=== PATIENT | male | born 1950 | race Caucasian/White ===

== ENCOUNTER → 2016-12-29 | Outpatient (CLI) | payer OTHER ==
[~2016-12-29] MED LIST: BYSTOLIC 5 MG5 M1 PO; DIOVAN 80 MG TA80 M1 PO; INDAPAMIDE1.25 MG PO; KLOR-CON 1010 MEQ PO; LEVOTHYROXINE0.05 MG PO; NORCO 5-325 TA1 EACH PO; POTASSIUM20 PO; TIZANIDINE HCL4 MG PO
[2016-12-29 09:54] LABS: CALCIUM 8.8 mg/dL (8.5-10.1); CREATININE 1.6 mg/dL (0.7-1.3); POTASSIUM 3.7 mmol/L (3.5-5.1)
== END ==
LOC: CAT 08:54
PROVIDERS: Internal Medicine
DX: I71.01 Dissection of thoracic aorta (principal)

== ENCOUNTER 2018-09-11 10:06 | Inpatient (IN) | payer OTHER ==
[~2018-09-11] VITALS: Ht 177.8 cm; Wt 137.9 kg
[~2018-09-11 10:06] MED LIST changes: -LEVOTHYROXINE0.05 MG PO; +SYNTHROID175 MCG PO
[2018-09-11 10:07] VITALS: BP 179/91; BP 183/100
[2018-09-11 10:38] LABS: ABSOLUTE NEUTROPHILS 5.5 thou/uL (1.4-8.2); BASOPHILS 1.1 % (0.0-2.0); HEMOGLOBIN 15.1 gm/dL (14.0-18.0); LYMPHOCYTES 18.3 % (24.0-44.0); MCH 28.5 pg (26.0-34.0); MCHC 33.6 g/dL (28.0-37.0); MCV 84.9 fL (80.0-100.0); PLATELET COUNT 254 thou/uL (150-400); POLYS 69.6 % (36.0-66.0); RDW 15.6 % (10.5-14.5); WBC 7.9 thou/uL (4.0-11.0)
[2018-09-11 10:51] LABS: CALCIUM 9.1 mg/dL (8.5-10.1); CREATININE 1.2 mg/dL (0.7-1.3); POTASSIUM 3.5 mmol/L (3.5-5.1)
[2018-09-11 10:58] LABS: ALBUMIN 3.4 g/dL (3.4-5.0); TOTAL BILIRUBIN 0.9 mg/dL (<0.1-1.0); TOTAL PROTEIN 7.5 g/dL (6.4-8.2)
[2018-09-11] MEDS ORDERED: NIFEDIPINE ER90 M1 PO (11:00)
[2018-09-11] MEDS ORDERED: COREG25 MG PO (11:00)
[2018-09-11] MEDS ORDERED: ZOCOR20 MG PO (11:00)
[2018-09-11] MEDS ORDERED: ELIQUIS5 MG PO (11:00)
[2018-09-11] MEDS ORDERED: COZAAR 25 MG TA25 M1 PO (11:00)
[2018-09-11] MEDS ORDERED: OMEPRAZOLE 20 M20 M1 PO (11:01)
[2018-09-11 12:04] VITALS: BP 167/104
[2018-09-11 13:56] VITALS: BP 170/101
[2018-09-11 14:03] VITALS: BP 156/113; BP 171/109
[2018-09-11 14:44] VITALS: BP 149/83
--- NOTE | 2018-09-11 15:27 | NUR ---
WOUND CONSULT: PT. WAS SEEN TODAY BY DR. CLARK AND MYSELF. PT. HAS BILATERAL LYMPEDEMA WITH CELLULITIS TO RIGHT LEG. NO OPEN ULCERATIONS NOTED AT THIS TIME. RECOMMENDATIONS: LYPEDEMA THERAPY PT. AND STAFF NURSE WERE INSTRUCTED ON PLAN OF CARE.
--- NOTE | 2018-09-11 17:13 | NUR ---
ASSESMENT COMPLETED. VSS. A/O. DENIES PAIN AT THIS TIME. NO NOTED SOA. NO NV. DAISY LE EDEMA. LYMPHEDEMA WRAP TO LEFT LEG. NOTED CELLULITIS RIGHT LOWER LEG- REDNESS MARKED IN ER. NO NOTED DRAINING AT THIS TIME. IV ABX GIVEN. CREAM TO RIGHT LOWER LEG APPLIED. WILL CONT. TO MONITOR.
[2018-09-11 19:07] VITALS: BP 122/58
--- NOTE | 2018-09-12 02:35 | NUR ---
ASSUMED CARE 1900. VSS. ASSESSMENT CHARTED. PT DENIES ANY PAIN, SOA, OR CONERNS. R LE NO DRAINAGE, L LE LYMPHODEMA WRAPS IN PLACE CDI. ABX PER EMAR. PT VOIDING WELL PER URINAL. WILL CONTINUE TO MONITOR AND WITH POC.
[2018-09-12 04:25] VITALS: BP 141/73
[2018-09-12 07:50] VITALS: BP 136/83
[2018-09-12 07:54] VITALS: BP 136/83
--- NOTE | 2018-09-12 09:10 | H ---
[facility] [place] [address] HISTORY AND PHYSICAL Name: ALEXEI DUNN JR Room #: 426-P ADM IN M.R.#: [id number] Admission: 09/11/18 Attend Phys: Silvio Ngo Discharge: Date of : 52 Report #: [id number] THIS REPORT FOR: //name// CC: Roberto Pickard DATE OF SERVICE: 09/11/2018 CHIEF COMPLAINT: Swelling and redness of the right lower leg. HISTORY OF PRESENT ILLNESS: The patient is a 67-year-old gentleman who presented to the Emergency Room with increased redness and swelling of the right leg. He has a known history of lymphedema and has been managed through an outpatient clinic for a number of years; however, he said there is an increasing area of redness on the right anterior lower leg that has increased in size beyond baseline. His lymphedema therapist assessed it this morning and recommended medical attention. He spoke to Dr. Pickard through the office, who recommended ER presentation. He has had no fever or chills. PAST MEDICAL HISTORY: Lymphedema of both lower legs, hypertension and dyslipidemia. PAST SURGICAL HISTORY: Left hip replacement, cholecystectomy. FAMILY HISTORY: Noncontributory. SOCIAL HISTORY: No chronic alcohol or tobacco use. ALLERGIES: None. MEDICATIONS: Prilosec, Coreg, Eliquis, Zocor, losartan, nifedipine, potassium, indapamide, Levoxyl. REVIEW OF SYSTEMS: Denies headache, chest pain, shortness of breath, abdominal pain, nausea, vomiting, diarrhea, constipation, dysuria, syncope. OBJECTIVE: VITAL SIGNS: Temperature 36.4, pulse 81, respirations 16, blood pressure 167/104, O2 sat 99% on room air. GENERAL: He is awake and alert, in no distress. LUNGS: Clear with no wheezing. HEART: Regular, no murmur. ABDOMEN: Soft, normoactive bowel sounds. EXTREMITIES: There is lower leg deformity with significant edema. The right lower leg has an area of erythema from the ankle to mid anterior tibia with some lichenified skin and some scaly plaque with serous drainage. NEUROLOGIC: Cranial nerves intact. Speech is fluent. Motor strength intact. [address] [address] HISTORY AND PHYSICAL Name: ALEXEI DUNN Tuyet Room #: 426-P [facility] IN [facility].#: [id number] Admission: 09/11/18 Attend Phys: Silvio Ngo Discharge: Date of : 52 Report #: [id number] LABORATORY DATA: Reviewed. ASSESSMENT: 1. Cellulitis, right lower extremity. 2. Lymphedema both lower legs. 3. Hypertension. PLAN: IV antibiotics have been ordered. I will resume his home medications and ask the Wound Care team to follow to assist in lymphedema management while he is in house. He is hooked into the [employer] system for outpatient lymphedema management. <ELECTRONICALLY SIGNED> By: Georges Contreras MD 09/12/18 0910 [id number] Georges Contreras MD /nt
[2018-09-12 11:43] VITALS: BP 123/77
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
--- NOTE | 2018-09-12 15:03 | NUR ---
WOUND FOLLOW UP: PT. WAS SEEN TODAY BY DR. CLARK AND MYSELF. PT. LEGS ARE CLNICALLY BETTER TODAY. OT IS PRESENT TO COMPLETE LYMPEDEMA THERAPY. RECOMMENDATIONS: CONTINUE WITH CURRENT PLAN OF CARE. PT. AND STAFF NURSE WERE INSTRUCTED ON PLAN OF CARE.
--- NOTE | 2018-09-12 15:11 | NUR ---
PATIENT WAS ADMITTED FOR LYMPHEDEMA. THERE IS REDDNESS ON THE RIGHT LEG. EDEMA NOTED ON BOTH LEG. WHEN LEFT LEG WAS UNWRAPPED NOTED SMALL LESION UNDER BUTTOCK, AND HIS CALF. TRIAMCINOLON OTEMINT WAS PUT ON THE RIGHT LEG.PATIENT IS ABLE TO AMBULATE WITH CANE. HAD ABOWEL MOVEMENT, IS AWAKE AND ORIENTED TIMES 4
--- NOTE | 2018-09-12 15:22 | NUR ---
I have reviewed and concur with student documentation.
--- NOTE | 2018-09-12 16:54 | NUR ---
PT ASSESSED AT START OF SHIFT. HERE FOR INCREASED REDDNESS ON RLL. HAS CHRONIC LYMPHEDEMA WHICH IS TREATED BY THERAPIST AT [facility]. REDDNESS IMPROVED SINCE IV ANTIBIOTICS. SEEN BY DR. COREAS AND BART RN. ORDERS FOR WOUND CARE ON LT LEG LESIONS. LYMPHEDEMA THERAPIST IN TO SEE AND EVAL PT WHILE WOUND DR. HERE. LEGS REWRAPPED AND WOUNDS DRESSED PER ORDERS BY THERAPIST. SHE WILL SEE PT AGAIN ON TUESDAY. NO C/O PAIN. EATING AND DRIKING WELL. HAD BM.
[2018-09-12 19:50] VITALS: BP 151/90
[2018-09-13 03:45] VITALS: BP 167/82
--- NOTE | 2018-09-13 04:38 | NUR ---
ALERT AND ORIENTED. USING URINAL BY BEDSIDE.LYMPHEDEMA WRAPS TO BLE. DENIES PAIN. AFEBRILE. MAKES NEEDS KNOWN.
[2018-09-13 07:50] VITALS: BP 152/93
--- NOTE | 2018-09-13 11:42 | NUR ---
ASSESMENT COMPLETED. VSS. A/O. DENIES PAIN. NO NOTED SOA. NO NV. WRAPS INTACT TO LLE. CREAM APPLIED TO RL LEG. PT RESTING IN BED AT THIS TIME. VOIDS PER URINAL. WILL CONT. TO MONITOR.
--- NOTE | 2018-09-13 13:15 | NUR ---
Following for d/c planning needs. Referral sent to [facility] at physician's request.
--- NOTE | 2018-09-13 14:35 | NUR ---
WOUND FOLLOW UP: PT. WAS SEEN TODAY BY DR. CLARK AND MYSELF. PT. CELLULITIS TO HIS RIGHT LEG IS RESOLVING. PT. LEFT LEG IS C/D/I WITH LYMPEDEMA WRAPS AT THIS TIME. RECOMMENDATIONS: CONTINUE WITH CURRENT PLAN OF CARE. PT. AND STAFF NURSE WERE INSTRUCTED ON PLAN OF CARE.
[2018-09-13 15:14] VITALS: BP 160/95
[2018-09-13 19:43] VITALS: BP 150/76
--- NOTE | 2018-09-14 05:38 | NUR ---
ASSUMED CARE AT 1900, ASSESSMENT COMPLETED. PT DENIES PAIN, NAUSEA, OR SOB. RLE IS WARM AND PINK FROM MID WSIFT TO ANKLE R/T CELLULITIS, NO WEEPING OR OPEN AREAS, PEELING SKIN IS PRESENT. LLE LYMPHADEMA WRAP IS IN PLACE. RIGHT AC IV INFILTRATED/CLOTTED OFF, REMOVED AND STARTED A NEW IV IN THE RIGHT WRIST. NO OTHER CONCERNS, WILL CONTINUE TO MONITOR.
[2018-09-14 05:43] VITALS: BP 147/82
[2018-09-14 08:30] VITALS: BP 171/85
--- NOTE | 2018-09-14 09:23 | HC ---
[facility] [place] [address] CONSULTATION Name: ALEXEI DUNN JR Room #: 426-P ADM IN M.R.#: [id number] Admission: 09/11/18 Attend Phys: Silvio Ngo Discharge: Date of : 52 Report #: [id number] THIS REPORT FOR: //name// CC: Roberto Pickard DATE OF SERVICE: 09/11/2018 CHIEF COMPLAINT: Cellulitis to the left lower extremity and bilateral lower extremity lymphedema. HISTORY OF PRESENT ILLNESS: This is a 67-year-old white male patient who has a longstanding history of lymphedema. He is currently managed by the lymphedema therapist at [facility]. He was admitted here with redness and swelling of his right leg. He has been started on intravenous antibiotic for cellulitis. I have been asked to see him with regard to the small ulceration on his right leg as well as continuation of his lymphedema management. PAST MEDICAL HISTORY: Positive for history of bilateral lower extremity lymphedema. 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 This apparently occurred when he was very young. He has a significant leg length discrepancy that has caused him to ambulate using the tips, sustaining on the ball of his left foot. He has had history of hypertension and history of dyslipidemia as well as ascending aortic dissection, status post surgical repair. FAMILY HISTORY: Noncontributory. SOCIAL HISTORY: Negative for alcohol or tobacco use. ALLERGIES: None. MEDICATIONS: Include Prilosec, Coreg, Eliquis, Zocor, losartan, nifedipine, potassium, indapamide, Levoxyl. REVIEW OF SYSTEMS: CONSTITUTIONAL: The patient denies fever, chills or weight loss. NEUROLOGICAL: The patient denies focal weakness, numbness or tingling. EYES: The patient denies any visual changes, redness or drainage. ENT: The patient denies earache, nasal drainage or sore throat. CARDIOVASCULAR: The patient denies chest pain, palpitations, diaphoresis. PULMONARY: The patient denies cough or shortness of breath. GASTROINTESTINAL: The patient denies nausea, vomiting, diarrhea or abdominal pain. ORTHOPEDIC: The patient does complain of pain, swelling and redness of his right leg, swelling of both legs related to his lymphedema and significant leg [address] [address] CONSULTATION Name: GEOFFREY DUNNKELBY Benz Room #: 426-P ADM IN M.R.#: [id number] Admission: 09/11/18 Attend Phys: Silvio Ngo Discharge: Date of : 52 Report #: [id number] length discrepancy that there has been a lifelong issue for him. Other systems in a 14-point review of systems are negative. PHYSICAL EXAMINATION: VITAL SIGNS: At this time include temperature 97.4, pulse 79, respiration of 18, blood pressure 149/83. GENERAL: This is a chronically ill-appearing male patient who appears to be in minimal distress. HEENT: Head normocephalic. Nose and throat clear. NECK: Supple. LUNGS: Clear. HEART: Regular rhythm. ABDOMEN: Soft. Bowel sounds present. EXTREMITIES: Lower extremities demonstrate lymphedema bilaterally from his toes to his hip level. He has more lymphedema on the left than on the right. He, however, has cellulitis with a small ulceration on the right lower pretibial region. There is moderate erythema and tenderness. No evidence of ascending lymphangitis. NEUROLOGIC: The patient is alert and oriented. When he is able to stand, he clearly has a leg length discrepancy, the left side being in my estimation 4 inches shorter than the right. NEUROLOGIC: The patient is alert and oriented and appropriate. LABORATORY DATA: Includes sodium 142, potassium 3.5, chloride 106, CO2 of 27, BUN 13, creatinine 1.2, glucose 95, SGOT is 21, total bilirubin 0.9, calcium 9.1, alkaline phosphatase 75, ALT 22, total protein 7.5, albumin 3.4. White blood cell count 7.9 with a hemoglobin of 15.1, hematocrit 45.0. CLINICAL IMPRESSION: 1. Cellulitis of the right lower leg. 2. Small ulceration of the right lower leg, likely secondary to infection. 3. Bilateral lower extremity lymphedema. 4. History of septic arthritis with reconstructive left hip arthroplasty with resultant leg length discrepancy resulting in significant alteration to his gait. RECOMMENDATIONS: At this point in time, the patient has been started on intravenous antibiotic therapy to which I agree. We will use elevation primarily for control of edema on the right side. We will ask the lymphedema therapist here to manage him with bilateral manual lymphatic drainage and compression bandages. As the redness diminishes on the right side, I think we [address] [address] CONSULTATION Name: ALEXEI DUNN Room #: 426-P [facility] IN M.R.#: [id number] Admission: 09/11/18 Attend Phys: Silvio Ngo Discharge: Date of : 52 Report #: [id number] could include that in the wrapping as well. I appreciate being asked to see the patient in consultation. <ELECTRONICALLY SIGNED> By: Torres Bhandari MD 09/14/18 0923 [id number] [id number] Torres Bhandari MD /nt
--- NOTE | 2018-09-14 13:43 | NUR ---
Following for d/c planning needs. Faxed updated clinical information to [facility]. Awaiting insurance authorization.
--- NOTE | 2018-09-14 14:25 | NUR ---
WOUND FOLLOW UP: PT. WAS SEEN TODAY BY DR. CLARK AND MYSELF. PT. WOUNDS ARE CLINICALLY BETTER AT THIS TIME. RECOMMENDATIONS: CONTINUE WITH CURRENT PLAN OF CARE. PT. AND STAFF NURSE WERE INSTRUCTED ON PLAN OF CARE.
--- NOTE | 2018-09-14 16:34 | NUR ---
S/W PT TO GET OPTIONS FOR SKILLED FACILITIES IN CASE [facility] IS DENIED. HE IS INTERESTED IN [facility] AND [facility]. WILL FAX REFERRALS TO BOTH FACILITIES.
[2018-09-14 17:32] VITALS: BP 173/110
--- NOTE | 2018-09-14 18:30 | NUR ---
PT ASSESSED AT START OF SHIFT. FEELS BETTER. WOUND DR AND LYMPHEDEMA RN HERE THIS AFTERNOOD TO SEE PT. LEGS MUCH IMPROVED W/ IV ANTIBIOTICS AND LEG WRAPS. PT EATING AND DRINKING WELL. AMBULATES W/ LIMP USING A CANE. LT LEG SHORTER THAN RT FROM CHILDHOOD. PT TRANSFERRED TO 226 AFTER REPORT GIVEN TO NURSE.
[2018-09-14 19:45] VITALS: BP 160/98
--- NOTE | 2018-09-15 04:07 | NUR ---
PT ARRIVED IN UNIT AT 190 VIA WC. BP, HR, & RR ELEVATED D/T TRANSFER. ASSESSMENT COMPLETED AT 2127 AND IS DOCUMENTED. BLE +4 EDEMA, LLE LYMPHEDEMA WRAPS C/D/I, RLE SPEEDER FRAME TENDER WITH ERYTHEMA NOTED TO MID-SWIFT AND BELOW. PT DENIES COUGH, LUNG SOUNDS CTA. PT DENIES PAIN AT THIS TIME. LBM: 09/14. RIGHT WRIST PIV PATENT AND SALINE LOCKED. CEFAZOLIN IVPB GIVEN WITHOUT COMPLICATION. PT CURRENTLY SLEEPING SOUNDLY IN BED IN NO ACUTE DISTRESS. CALL LIGHT WITHIN REACH. BED LOCKED AND IN LOWEST POSITION. WCTM.
[2018-09-15 08:15] VITALS: BP 148/84
--- NOTE | 2018-09-15 10:03 | NUR ---
Assess initially due to high BMI status. Upon visit, pt does not appear >300 lb however does have significant lymphedema/4+ lower extremities. Pt reports usual wt more closer to 250 lb. Has carb controlled diet ordered, no hx diabetes, no accuchecks. Will change diet order to 2g Na, pt aware and agrees. Low nutrition risk
--- NOTE | 2018-09-15 10:18 | NUR ---
CM NOTIFIED THAT INCURANCE DENIED ACUTE REHAB WILL PROCEEDE WITH SKILLED PLACEMENT AT [facility] OR [facility].
--- NOTE | 2018-09-15 11:08 | NUR ---
PATIENT CARE WAS ASSUMED AT 0715.PATIENT IS ALERT AND ORIENTED X4.PATIENT HAS NO COMPLAINS OF PAIN AT THIS TIME.IV IS INTACT AND SALINE LOCKED.PT IS ABLE TO GET UP ON HIS OWN WITH STANDBY ASSIST.HAS BILATERAL CELLULITIS, AND HX OF LYMPHEDEMA.LEFT LEG IS WRAPPED.CALL LIGHT, PHONE, AND PERSONAL BELONGINGS ARE WITHIN REACH.
[2018-09-15] MEDS ORDERED: KEFLEX500 M1 PO (12:03)
[2018-09-15] MEDS ORDERED: TRIAMCINOLONE A80 G2 TOP (12:03)
--- NOTE | 2018-09-15 16:28 | NUR ---
WOUND FOLLOW UP: PT. WAS SEEN TODAY BY DR. CLARK AND MYSELF. LYMPEDEMA WRAP IS INTACK AT THIS TIME. RECOMMENDATIONS: CONTINUE WITH CURRENT PLAN OF CARE. PT. AND STAFF NURSE WERE INSTRUCTED ON PLAN OF CARE.
--- NOTE | 2018-09-15 18:12 | NUR ---
ASSUMED CARE OF PATIENT AT 0715, PATIENT ALERT AND ORIENTED X 4. UP AD PASCUAL TO THE BATHROOM. PATIENT DENIES PAIN THIS SHIFT. PATIENT HAS NON-PRODUCTIVE COUGH, REFUSING BREATHING, THIS RN NOTIFIED DR MAURER OF REFUSING BREATHING TREATMENTS, PATIENT STATES THE TREATMENTS MAKE HIM COUGH MORE. PATIENT HAS LEFT IV IN PLACE, SOLU MEDROL IV DISCONTINUED TODAY. PATIENT ENCOURAGED TO DRINK FLUIDS. WILL CONTUNUE TO MONITOR.
[2018-09-15 18:54] VITALS: BP 143/83
--- NOTE | 2018-09-16 04:50 | NUR ---
ASSUMED CARE OF PATIENT AT 1899. VSS. ASSESSMENT COMPLETED AT 2056 AND IS DOCUMENTED. LYMPHEDEMA WRAP ON LLE C/D/I. RLE STILL ERYTHEMOUS FROM ABOUT MID-SWIFT DISTAL TO TOES. RIGHT WRIST PIV PATENT AND SALINE LOCKED. CEFAZOLIN GIVEN PER OCT WITHOUT COMPLICATION. PT CURRENTLY SLEEPING SOUNDLY IN BED IN NO ACUTE DISTRESS. CALL LIGHT WITHIN REACH. BED LOCKED AND IN LOWEST POSITION. WCTM.
--- NOTE | 2018-09-16 07:16 | NUR ---
THIS NURSE AGREES WITH THE ASSESSMENT AND NOTES OF THE CHILDREN'S PROGRAM COORDINATOR.
[2018-09-16 17:25] VITALS: BP 138/83
[2018-09-16 19:54] VITALS: BP 133/79
--- NOTE | 2018-09-17 04:14 | NUR ---
ASSUMED CARE OF PATIENT AT 1900. VSS. ASSESSMENT COMPLETED AT 2200 AND IS DOCUMENTED. CELLULITIS ON RLE IMPROVING. LLE LYMPHEDEMA WRAPS STILL C/D/I. SOME COARSE CRACKLES NOTED BUT ABLE TO CLEAR WITH COUGH. RIGHT WRIST PIV PATENT AND SALINE LOCKED. CEFAZOLIN INFUSED WITHOUT DIFFICULTY. PT CURRENTLY RESTING SOUNDLY IN BED IN NO ACUTE DISTRESS. CALL LIGHT WITHIN REACH. BED LOCKED AND IN LOWEST POSITION. WCTM.
--- NOTE | 2018-09-17 04:41 | NUR ---
THIS NURSE AGREES WITH ASSESSMENT AND NOTES ON THIS PATIENT BY PATIENT OBSERVER.
[2018-09-17 08:00] VITALS: BP 138/74
[2018-09-17 10:34] VITALS: BP 138/74
--- NOTE | 2018-09-17 12:22 | NUR ---
AAOX4. CALM, COOPERATIVE. LE GROSSLY EDEMATOUS. SKIN OF RLE W/CELLULITIS, THICKENED, DRY AND HARD, TREATED WITH TRIAMCINOLONE CREAM ORDERED. APPETITE BRISK. VOIDING PER URINAL. WILL CONTINUE TO MONITOR.
[2018-09-17 18:53] VITALS: BP 138/74
--- NOTE | 2018-09-18 04:12 | NUR ---
PATIENTS CARES WERE ASSUMED AT SHIFT CHANGE. PATIENT WAS ASSESED AND MEDS ERE PASSED. PATIENT DID REQUEST A BED TIME SNACK OF A CUP OF COFFEE, ICE CREAM, AND A TURKEY SANDWICH TRAY. AT 0400 PATIENT CALLED OUT TO EMPTY THE URINAL AND 2 APPLE JUICE. PATIENT WOULD SLEEP 4 TO 6 HOURS OF INTERUPTED SLEEP. HOURLY ROUNDING WAS DONE. THE BED IS IN A LOW AND LOCKED POSITION.
[2018-09-18 07:27] VITALS: BP 155/87
[2018-09-18 09:36] VITALS: BP 155/87
--- NOTE | 2018-09-18 10:11 | NUR ---
LUI SENT UPDATES TO [facility].
--- NOTE | 2018-09-18 10:14 | NUR ---
CHERRI reviewed chart and spoke with nursing. Pt is progressing towards goals for discharge. Awaiting insurance authorization for skilled placement. [facility] is unable to accept pt. Referral also had been sent to [facility]. Updated clinical/therapy info faxed to [facility] for review. CHERRI left voice message for yard coordinator, Irene, to provide update and determine if they are able to accept pt. Will need insurance authorization. CHERRI met with pt at bedside to provide update. Pt was unaware that [facility] declined admission. Pt was upset that [facility] cannot accept him, and is agreeable with [facility] if they are able. Awaiting therapy notes from today to submit. Chart copy ordered. CHERRI updated attending physician. CHERRI is following to assist as needed with discharge planning.
[2018-09-18] MEDS ORDERED: KEFLEX500 M1 PO (13:08)
--- NOTE | 2018-09-18 13:44 | NUR ---
ASSUMED CARE OF PATIENT THIS MORNING. PATIENT IS A&OX4. HE IS UP W/SBA WHEN AMBULATING. HE HAS BILATERAL LOWER EXTREMITY CELLULITIS AND LYMPHEDMEA. HE HAS BEEN FOLLOWED BY WOUND CARE HERE IN THE HOSPITAL. PATIENT ALSO RECEIVES PT/OT. HE DOES NOT COMPLAIN OF ANY PAIN. CLEAR BREATH SOUNDS. ACTIVE BOWEL SOUNDS, LAST BOWEL MOVEMENT WAS YESTERDAY. HE VOIDS PER URINAL. HE HAS BILATERAL EDEMATOUS, REDNESS, AND HIS SKIN IS WARM AND DRY. PATIENT IS CURRENTLY SITTING IN CHAIR WITH CALL LIGHT WITHIN REACH. PATIENT WILL POSSIBLY BE DISCHARGING THIS AFTERNOON ONCE INSURANCE AUTHORIZATION IS RECEIVED.
--- NOTE | 2018-09-18 15:15 | NUR ---
dp requested chart copy for patient from evelyn on 2n. DP let unit know of pickup time today 4pm, and told nurse to please let patient know.
--- NOTE | 2018-09-18 15:53 | NUR ---
PATIENT WILL BE DISCHARGING TO [facility] VIA [facility]EL CHAIR VAN. REPORT HAS BEEN CALLED TO FACILITY AND DISCHARGE PAPERWORK COPIED. IV DC'D. PATIENT IS CURRENTLY WAITING FOR DISCHARGE.
--- NOTE | 2018-09-18 16:12 | NUR ---
PATIENT DISCHARGED TO [facility] VIA [facility]ELCHAIR VAN. SECURITY CALLED FOR PATIENTS BELONGINGS. PATIENT DC'D WITH BELONGINGS AND DISCHARGE PAPERWORK.
--- NOTE | 2018-09-22 08:38 | D ---
[facility] [place] [address] DISCHARGE SUMMARY Name: ALEXEI DUNN JR Room #: 226-P [facility] IN M.R.#: [id number] Admission: 09/11/18 Attend Phys: Silvio Ngo Discharge: 09/18/18 Date of : 52 Report #: [id number] THIS REPORT FOR: //name// CC: Roberto Pickard DATE OF SERVICE: 09/18/2018 FINAL DIAGNOSES: 1. Cellulitis of the right lower extremity. 2. Chronic lymphedema. 3. Chronic atrial fibrillation. HOSPITAL COURSE: The patient was admitted with redness, pain and swelling of the right lower extremity and was diagnosed and treated for cellulitis with IV Ancef. The Wound Care Service followed him to manage lymphedema. He had some venous stasis like thickened skin plaques on the right lower leg, which were treated with topical steroids. Other home medications were continued. He did have significant social issues in regards to transportation and living arrangements at home, which were discussed with social work. Ultimately, my recommendation was care home for continued physical therapy, lymphedema management, finish a course of oral antibiotics, but also social support until his home situation is resolved. DISPOSITION: He is being transferred to a care home unit. He will continue current medications. He will have Keflex for 3 more days. He will have outpatient lymphedema management and follow up with Dr. Pickard in 1 month. <ELECTRONICALLY SIGNED> By: Georges Contreras MD 09/22/18 0838 1046 1058 Georges Contreras MD /jaime
== END 2018-09-18 16:20 | DRG 603 ==
LOC: ER 10:06 → 4E 11:36 → EROBS 11:36 → 4E 14:12 → SICU 09-14 20:12
PROVIDERS: Physician Assistant; ADMIT Internal Medicine
DX: L03.115 Cellulitis of right lower limb (principal); L97.919 Non-pressure chronic ulcer of unspecified part of right lower leg with unspecified severity; L97.229 Non-pressure chronic ulcer of left calf with unspecified severity; L97.129 Non-pressure chronic ulcer of left thigh with unspecified severity; I89.0 Lymphedema, not elsewhere classified; Z96.642 Presence of left artificial hip joint; I10 Essential (primary) hypertension; I48.2 Chronic atrial fibrillation; E78.5 Hyperlipidemia, unspecified; Z90.49 Acquired absence of other specified parts of digestive tract; Z79.899 Other long term (current) drug therapy
CPT/HCPCS: 10084; 15002

== ENCOUNTER → 2019-05-22 | Outpatient (CLI) | payer OTHER ==
[~2019-05-22] MED LIST changes: +COREG25 MG PO; +COZAAR 25 MG TA25 M1 PO; +ELIQUIS5 MG PO; +KEFLEX500 M1 PO; +NIFEDIPINE ER90 M1 PO; +OMEPRAZOLE 20 M20 M1 PO; +TRIAMCINOLONE A80 G2 TOP; +ZOCOR20 MG PO
== END ==
LOC: HYPER 05-11 13:47
DX: L97.522 Non-pressure chronic ulcer of other part of left foot with fat layer exposed (principal); L03.116 Cellulitis of left lower limb; I87.2 Venous insufficiency (chronic) (peripheral); I89.0 Lymphedema, not elsewhere classified; L98.0 Pyogenic granuloma; D21.22 Benign neoplasm of connective and other soft tissue of left lower limb, including hip; L60.3 Nail dystrophy; I73.9 Peripheral vascular disease, unspecified; K21.9 Gastro-esophageal reflux disease without esophagitis; E78.00 Pure hypercholesterolemia, unspecified; E78.5 Hyperlipidemia, unspecified; I10 Essential (primary) hypertension; G61.0 Guillain-Barre syndrome; Z87.891 Personal history of nicotine dependence; Z79.01 Long term (current) use of anticoagulants

== ENCOUNTER → 2019-06-06 | Outpatient (CLI) | payer OTHER | LOC: HYPER 08:21 | DX: L97.522 Non-pressure chronic ulcer of other part of left foot with fat layer exposed (principal); I89.0 Lymphedema, not elsewhere classified; L03.032 Cellulitis of left toe; E78.5 Hyperlipidemia, unspecified; I10 Essential (primary) hypertension; I73.9 Peripheral vascular disease, unspecified; L98.0 Pyogenic granuloma; L03.116 Cellulitis of left lower limb; I87.2 Venous insufficiency (chronic) (peripheral); M79.675 Pain in left toe(s); L60.3 Nail dystrophy; K21.9 Gastro-esophageal reflux disease without esophagitis; E78.00 Pure hypercholesterolemia, unspecified; D21.22 Benign neoplasm of connective and other soft tissue of left lower limb, including hip; R60.0 Localized edema; Z87.891 Personal history of nicotine dependence ==

== ENCOUNTER → 2019-06-20 | Outpatient (CLI) | payer OTHER | LOC: CATH 06-12 09:10 → HYPER 13:45 | DX: L97.522 Non-pressure chronic ulcer of other part of left foot with fat layer exposed (principal); L03.032 Cellulitis of left toe; L98.0 Pyogenic granuloma; I89.0 Lymphedema, not elsewhere classified; I87.2 Venous insufficiency (chronic) (peripheral); E78.00 Pure hypercholesterolemia, unspecified; E78.5 Hyperlipidemia, unspecified; I10 Essential (primary) hypertension; I73.9 Peripheral vascular disease, unspecified; L60.3 Nail dystrophy; M79.675 Pain in left toe(s); D21.22 Benign neoplasm of connective and other soft tissue of left lower limb, including hip; K21.9 Gastro-esophageal reflux disease without esophagitis; R60.0 Localized edema; Z87.891 Personal history of nicotine dependence ==

== ENCOUNTER → 2019-07-10 | Outpatient (CLI) | payer OTHER ==
[~2019-07-10] VITALS: Ht 177.8 cm; Wt 125.0 kg
[~2019-07-10] MED LIST changes: +DIOVAN160 MG PO
[2019-07-10 12:38] VITALS: BP 101/51
[2019-07-10 12:40] LABS: HEMATOCRIT 42.4 % (42.0-52.0); HEMOGLOBIN 14.1 gm/dL (14.0-18.0); MCH 29.8 pg (26.0-34.0); MCHC 33.2 g/dL (28.0-37.0); MCV 89.7 fL (80.0-100.0); RBC 4.73 mil/uL (4.50-6.00); WBC 6.4 thou/uL (4.0-11.0)
[2019-07-10 12:49] LABS: CALCIUM 9.8 mg/dL (8.5-10.1); CREATININE 1.2 mg/dL (0.7-1.3); POTASSIUM 4.2 mmol/L (3.5-5.1)
== END | disposition home or self-care (01) ==
LOC: CATH 10:16
PROVIDERS: Nuclear Medicine Nuclear Cardiology
DX: I87.2 Venous insufficiency (chronic) (peripheral) (principal); I87.1 Compression of vein; M79.89 Other specified soft tissue disorders; I10 Essential (primary) hypertension; I48.91 Unspecified atrial fibrillation; E78.5 Hyperlipidemia, unspecified; Z98.890 Other specified postprocedural states; Z87.891 Personal history of nicotine dependence; Z90.49 Acquired absence of other specified parts of digestive tract; Z79.01 Long term (current) use of anticoagulants; Z79.899 Other long term (current) drug therapy

== ENCOUNTER → 2019-07-18 | Outpatient (CLI) | payer OTHER | LOC: HYPER 13:54 | DX: L97.522 Non-pressure chronic ulcer of other part of left foot with fat layer exposed (principal); L03.032 Cellulitis of left toe; L60.3 Nail dystrophy; L98.0 Pyogenic granuloma; D21.22 Benign neoplasm of connective and other soft tissue of left lower limb, including hip; G61.0 Guillain-Barre syndrome; E78.5 Hyperlipidemia, unspecified; E78.00 Pure hypercholesterolemia, unspecified; I87.2 Venous insufficiency (chronic) (peripheral); I89.0 Lymphedema, not elsewhere classified; R60.0 Localized edema; I10 Essential (primary) hypertension; I73.9 Peripheral vascular disease, unspecified; K21.9 Gastro-esophageal reflux disease without esophagitis; M79.675 Pain in left toe(s); Z87.891 Personal history of nicotine dependence ==

== ENCOUNTER → 2019-08-02 | Outpatient (CLI) | payer OTHER | LOC: HYPER 14:38 | DX: L97.522 Non-pressure chronic ulcer of other part of left foot with fat layer exposed (principal); L03.032 Cellulitis of left toe; L98.0 Pyogenic granuloma; I87.2 Venous insufficiency (chronic) (peripheral); I73.9 Peripheral vascular disease, unspecified; E78.00 Pure hypercholesterolemia, unspecified; I10 Essential (primary) hypertension; L60.3 Nail dystrophy; I89.0 Lymphedema, not elsewhere classified; D21.22 Benign neoplasm of connective and other soft tissue of left lower limb, including hip; K21.9 Gastro-esophageal reflux disease without esophagitis; R60.0 Localized edema; Z87.891 Personal history of nicotine dependence ==

== ENCOUNTER → 2019-08-21 | Outpatient (CLI) | payer OTHER | LOC: HYPER 13:35 | DX: L97.522 Non-pressure chronic ulcer of other part of left foot with fat layer exposed (principal); L03.032 Cellulitis of left toe; L98.0 Pyogenic granuloma; L60.3 Nail dystrophy; I87.2 Venous insufficiency (chronic) (peripheral); I10 Essential (primary) hypertension; I73.9 Peripheral vascular disease, unspecified; I89.0 Lymphedema, not elsewhere classified; E78.00 Pure hypercholesterolemia, unspecified; E78.5 Hyperlipidemia, unspecified; K21.9 Gastro-esophageal reflux disease without esophagitis; M79.675 Pain in left toe(s); R60.0 Localized edema; D21.22 Benign neoplasm of connective and other soft tissue of left lower limb, including hip; Z68.42 Body mass index [BMI] 45.0-49.9, adult; Z87.891 Personal history of nicotine dependence ==

== ENCOUNTER → 2019-09-04 | Outpatient (CLI) | payer OTHER | LOC: HYPER 11:17 | DX: L97.522 Non-pressure chronic ulcer of other part of left foot with fat layer exposed (principal); I87.2 Venous insufficiency (chronic) (peripheral); I89.0 Lymphedema, not elsewhere classified; L98.0 Pyogenic granuloma; D21.22 Benign neoplasm of connective and other soft tissue of left lower limb, including hip; L60.3 Nail dystrophy; K21.9 Gastro-esophageal reflux disease without esophagitis; E78.00 Pure hypercholesterolemia, unspecified; E78.5 Hyperlipidemia, unspecified; I10 Essential (primary) hypertension; I73.9 Peripheral vascular disease, unspecified; F32.9 Major depressive disorder, single episode, unspecified; F41.9 Anxiety disorder, unspecified; Z87.891 Personal history of nicotine dependence ==

== ENCOUNTER → 2019-09-18 | Outpatient (CLI) | payer OTHER | LOC: HYPER 14:56 | DX: L97.526 Non-pressure chronic ulcer of other part of left foot with bone involvement without evidence of necrosis (principal); I87.2 Venous insufficiency (chronic) (peripheral); L98.0 Pyogenic granuloma; I89.0 Lymphedema, not elsewhere classified; L03.032 Cellulitis of left toe; K21.9 Gastro-esophageal reflux disease without esophagitis; E78.00 Pure hypercholesterolemia, unspecified; E78.5 Hyperlipidemia, unspecified; I10 Essential (primary) hypertension; I73.9 Peripheral vascular disease, unspecified; Z87.891 Personal history of nicotine dependence; Z79.01 Long term (current) use of anticoagulants ==

== ENCOUNTER → 2019-10-02 | Outpatient (CLI) | payer OTHER | LOC: HYPER 14:03 | DX: L97.526 Non-pressure chronic ulcer of other part of left foot with bone involvement without evidence of necrosis (principal); I87.2 Venous insufficiency (chronic) (peripheral); I89.0 Lymphedema, not elsewhere classified; D21.22 Benign neoplasm of connective and other soft tissue of left lower limb, including hip; L98.0 Pyogenic granuloma; L03.032 Cellulitis of left toe; L60.3 Nail dystrophy; M79.675 Pain in left toe(s); K21.9 Gastro-esophageal reflux disease without esophagitis; E78.00 Pure hypercholesterolemia, unspecified; E78.5 Hyperlipidemia, unspecified; I10 Essential (primary) hypertension; I73.9 Peripheral vascular disease, unspecified; G61.0 Guillain-Barre syndrome; Z87.891 Personal history of nicotine dependence; Z79.01 Long term (current) use of anticoagulants ==

== ENCOUNTER → 2019-10-16 | Outpatient (CLI) | payer OTHER | LOC: HYPER 13:19 | DX: L97.526 Non-pressure chronic ulcer of other part of left foot with bone involvement without evidence of necrosis (principal); L03.032 Cellulitis of left toe; L98.0 Pyogenic granuloma; I89.0 Lymphedema, not elsewhere classified; I87.2 Venous insufficiency (chronic) (peripheral); R60.0 Localized edema; L60.3 Nail dystrophy; M79.675 Pain in left toe(s); D21.22 Benign neoplasm of connective and other soft tissue of left lower limb, including hip; K21.9 Gastro-esophageal reflux disease without esophagitis; E78.00 Pure hypercholesterolemia, unspecified; E78.5 Hyperlipidemia, unspecified; I10 Essential (primary) hypertension; I73.9 Peripheral vascular disease, unspecified; G61.0 Guillain-Barre syndrome; F41.9 Anxiety disorder, unspecified; F32.9 Major depressive disorder, single episode, unspecified; Z87.891 Personal history of nicotine dependence; Z79.01 Long term (current) use of anticoagulants ==

== ENCOUNTER → 2019-10-30 | Outpatient (CLI) | payer OTHER | LOC: HYPER 14:30 | DX: L97.522 Non-pressure chronic ulcer of other part of left foot with fat layer exposed (principal); I89.0 Lymphedema, not elsewhere classified; I87.2 Venous insufficiency (chronic) (peripheral); I10 Essential (primary) hypertension; I73.9 Peripheral vascular disease, unspecified; L98.0 Pyogenic granuloma; L03.032 Cellulitis of left toe; L60.3 Nail dystrophy; R60.0 Localized edema; M79.675 Pain in left toe(s); D21.22 Benign neoplasm of connective and other soft tissue of left lower limb, including hip; K21.9 Gastro-esophageal reflux disease without esophagitis; E78.00 Pure hypercholesterolemia, unspecified; E78.5 Hyperlipidemia, unspecified; Z87.891 Personal history of nicotine dependence ==

== ENCOUNTER → 2019-11-20 | Outpatient (CLI) | payer OTHER | LOC: HYPER 14:34 | DX: L97.522 Non-pressure chronic ulcer of other part of left foot with fat layer exposed (principal); L98.0 Pyogenic granuloma; I89.0 Lymphedema, not elsewhere classified; I87.2 Venous insufficiency (chronic) (peripheral); L03.032 Cellulitis of left toe; D21.22 Benign neoplasm of connective and other soft tissue of left lower limb, including hip; L60.3 Nail dystrophy; M79.675 Pain in left toe(s); K21.9 Gastro-esophageal reflux disease without esophagitis; E78.00 Pure hypercholesterolemia, unspecified; E78.5 Hyperlipidemia, unspecified; I10 Essential (primary) hypertension; I73.9 Peripheral vascular disease, unspecified; G61.0 Guillain-Barre syndrome; Z87.891 Personal history of nicotine dependence; Z79.01 Long term (current) use of anticoagulants ==

== ENCOUNTER → 2019-12-04 | Outpatient (CLI) | payer OTHER | LOC: HYPER 14:42 | DX: L97.522 Non-pressure chronic ulcer of other part of left foot with fat layer exposed (principal); I87.2 Venous insufficiency (chronic) (peripheral); I89.0 Lymphedema, not elsewhere classified; L98.0 Pyogenic granuloma; L03.032 Cellulitis of left toe; R60.0 Localized edema; L60.3 Nail dystrophy; M79.675 Pain in left toe(s); D21.22 Benign neoplasm of connective and other soft tissue of left lower limb, including hip; K21.9 Gastro-esophageal reflux disease without esophagitis; E78.00 Pure hypercholesterolemia, unspecified; E78.5 Hyperlipidemia, unspecified; I10 Essential (primary) hypertension; I73.9 Peripheral vascular disease, unspecified; G61.0 Guillain-Barre syndrome; F41.9 Anxiety disorder, unspecified; F32.9 Major depressive disorder, single episode, unspecified ==

== ENCOUNTER → 2019-12-18 | Outpatient (CLI) | payer OTHER | LOC: HYPER 10:31 | DX: L97.522 Non-pressure chronic ulcer of other part of left foot with fat layer exposed (principal); L84 Corns and callosities; L98.0 Pyogenic granuloma; L03.032 Cellulitis of left toe; L60.3 Nail dystrophy; R60.0 Localized edema; I89.0 Lymphedema, not elsewhere classified; I87.2 Venous insufficiency (chronic) (peripheral); I10 Essential (primary) hypertension; I73.9 Peripheral vascular disease, unspecified; D21.22 Benign neoplasm of connective and other soft tissue of left lower limb, including hip; E78.00 Pure hypercholesterolemia, unspecified; E78.5 Hyperlipidemia, unspecified; G61.0 Guillain-Barre syndrome; K21.9 Gastro-esophageal reflux disease without esophagitis; M79.675 Pain in left toe(s); Z87.891 Personal history of nicotine dependence ==

== ENCOUNTER → 2020-01-01 | Outpatient (CLI) | payer OTHER | LOC: HYPER 13:42 | DX: L97.522 Non-pressure chronic ulcer of other part of left foot with fat layer exposed (principal); L98.0 Pyogenic granuloma; L84 Corns and callosities; L03.032 Cellulitis of left toe; L60.3 Nail dystrophy; I89.0 Lymphedema, not elsewhere classified; R60.0 Localized edema; E78.00 Pure hypercholesterolemia, unspecified; E78.5 Hyperlipidemia, unspecified; D21.22 Benign neoplasm of connective and other soft tissue of left lower limb, including hip; G61.0 Guillain-Barre syndrome; I87.2 Venous insufficiency (chronic) (peripheral); I10 Essential (primary) hypertension; I73.9 Peripheral vascular disease, unspecified; M79.675 Pain in left toe(s); K21.9 Gastro-esophageal reflux disease without esophagitis; F41.9 Anxiety disorder, unspecified; F32.9 Major depressive disorder, single episode, unspecified; Z87.891 Personal history of nicotine dependence ==

== ENCOUNTER → 2020-01-15 | Outpatient (CLI) | payer OTHER | LOC: HYPER 07:26 | PROVIDERS: ATTEND Emergency Medicine | DX: L97.526 Non-pressure chronic ulcer of other part of left foot with bone involvement without evidence of necrosis (principal); L03.032 Cellulitis of left toe; L98.0 Pyogenic granuloma; L84 Corns and callosities; L60.3 Nail dystrophy; I89.0 Lymphedema, not elsewhere classified; R60.0 Localized edema; D21.22 Benign neoplasm of connective and other soft tissue of left lower limb, including hip; E78.00 Pure hypercholesterolemia, unspecified; E78.5 Hyperlipidemia, unspecified; G61.0 Guillain-Barre syndrome; I87.2 Venous insufficiency (chronic) (peripheral); I10 Essential (primary) hypertension; I73.9 Peripheral vascular disease, unspecified; M79.675 Pain in left toe(s); Z87.891 Personal history of nicotine dependence; K21.9 Gastro-esophageal reflux disease without esophagitis ==

== ENCOUNTER → 2020-01-29 | Outpatient (CLI) | payer OTHER | LOC: HYPER 09:54 | PROVIDERS: ATTEND Emergency Medicine | DX: L97.526 Non-pressure chronic ulcer of other part of left foot with bone involvement without evidence of necrosis (principal); L03.032 Cellulitis of left toe; L98.0 Pyogenic granuloma; I89.0 Lymphedema, not elsewhere classified; I87.2 Venous insufficiency (chronic) (peripheral); R60.0 Localized edema; L60.3 Nail dystrophy; M79.675 Pain in left toe(s); D21.22 Benign neoplasm of connective and other soft tissue of left lower limb, including hip; K21.9 Gastro-esophageal reflux disease without esophagitis; E78.00 Pure hypercholesterolemia, unspecified; E78.5 Hyperlipidemia, unspecified; I10 Essential (primary) hypertension; I73.9 Peripheral vascular disease, unspecified; G61.0 Guillain-Barre syndrome; F41.9 Anxiety disorder, unspecified; F32.9 Major depressive disorder, single episode, unspecified; Z87.891 Personal history of nicotine dependence; Z79.01 Long term (current) use of anticoagulants ==

== ENCOUNTER → 2020-02-12 | Outpatient (CLI) | payer OTHER | LOC: HYPER 08:00 | PROVIDERS: ATTEND Emergency Medicine | DX: L97.522 Non-pressure chronic ulcer of other part of left foot with fat layer exposed (principal); I87.2 Venous insufficiency (chronic) (peripheral); L03.032 Cellulitis of left toe; I89.0 Lymphedema, not elsewhere classified; L98.0 Pyogenic granuloma; D21.22 Benign neoplasm of connective and other soft tissue of left lower limb, including hip; L60.3 Nail dystrophy; M79.675 Pain in left toe(s); K21.9 Gastro-esophageal reflux disease without esophagitis; E78.00 Pure hypercholesterolemia, unspecified; I10 Essential (primary) hypertension; E78.5 Hyperlipidemia, unspecified; I73.9 Peripheral vascular disease, unspecified; G61.0 Guillain-Barre syndrome; Z87.891 Personal history of nicotine dependence; Z79.01 Long term (current) use of anticoagulants ==

== ENCOUNTER → 2020-02-26 | Outpatient (CLI) | payer OTHER | LOC: HYPER 14:32 | PROVIDERS: ATTEND Emergency Medicine | DX: L97.526 Non-pressure chronic ulcer of other part of left foot with bone involvement without evidence of necrosis (principal); L03.032 Cellulitis of left toe; I87.2 Venous insufficiency (chronic) (peripheral); L98.0 Pyogenic granuloma; I89.0 Lymphedema, not elsewhere classified; R60.0 Localized edema; L60.3 Nail dystrophy; M79.675 Pain in left toe(s); D21.22 Benign neoplasm of connective and other soft tissue of left lower limb, including hip; K21.9 Gastro-esophageal reflux disease without esophagitis; E78.00 Pure hypercholesterolemia, unspecified; I10 Essential (primary) hypertension; E78.5 Hyperlipidemia, unspecified; I73.9 Peripheral vascular disease, unspecified; G61.0 Guillain-Barre syndrome; F41.9 Anxiety disorder, unspecified; F32.9 Major depressive disorder, single episode, unspecified; Z87.891 Personal history of nicotine dependence; Z79.01 Long term (current) use of anticoagulants ==

== ENCOUNTER → 2020-03-11 | Outpatient (CLI) | payer OTHER | LOC: HYPER 14:45 | PROVIDERS: ATTEND Emergency Medicine | DX: L97.526 Non-pressure chronic ulcer of other part of left foot with bone involvement without evidence of necrosis (principal); L03.032 Cellulitis of left toe; L98.0 Pyogenic granuloma; I89.0 Lymphedema, not elsewhere classified; I87.2 Venous insufficiency (chronic) (peripheral); R60.0 Localized edema; L60.3 Nail dystrophy; M79.675 Pain in left toe(s); D21.22 Benign neoplasm of connective and other soft tissue of left lower limb, including hip; K21.9 Gastro-esophageal reflux disease without esophagitis; E78.00 Pure hypercholesterolemia, unspecified; E78.5 Hyperlipidemia, unspecified; G61.0 Guillain-Barre syndrome; I10 Essential (primary) hypertension; Z87.891 Personal history of nicotine dependence; Z79.01 Long term (current) use of anticoagulants ==

== ENCOUNTER → 2020-03-25 | Outpatient (CLI) | payer OTHER | LOC: HYPER 14:37 | PROVIDERS: ATTEND Emergency Medicine | DX: L97.522 Non-pressure chronic ulcer of other part of left foot with fat layer exposed (principal); L03.032 Cellulitis of left toe; L98.0 Pyogenic granuloma; L60.3 Nail dystrophy; L84 Corns and callosities; I89.0 Lymphedema, not elsewhere classified; R60.0 Localized edema; D21.22 Benign neoplasm of connective and other soft tissue of left lower limb, including hip; E66.01 Morbid (severe) obesity due to excess calories; I87.2 Venous insufficiency (chronic) (peripheral); M79.675 Pain in left toe(s); F41.9 Anxiety disorder, unspecified; F32.9 Major depressive disorder, single episode, unspecified; Z87.891 Personal history of nicotine dependence ==

== ENCOUNTER → 2020-04-07 | Outpatient (CLI) | payer OTHER | LOC: HYPER 14:01 | PROVIDERS: ATTEND Emergency Medicine | DX: L97.522 Non-pressure chronic ulcer of other part of left foot with fat layer exposed (principal); I87.2 Venous insufficiency (chronic) (peripheral); I89.0 Lymphedema, not elsewhere classified; L98.0 Pyogenic granuloma; L03.032 Cellulitis of left toe; L60.3 Nail dystrophy; M79.675 Pain in left toe(s); D21.22 Benign neoplasm of connective and other soft tissue of left lower limb, including hip; R60.0 Localized edema; K21.9 Gastro-esophageal reflux disease without esophagitis; E78.00 Pure hypercholesterolemia, unspecified; E78.5 Hyperlipidemia, unspecified; I10 Essential (primary) hypertension; G61.0 Guillain-Barre syndrome; Z87.891 Personal history of nicotine dependence; Z79.01 Long term (current) use of anticoagulants ==

== ENCOUNTER → 2020-04-22 | Outpatient (CLI) | payer OTHER | LOC: HYPER 10:08 | PROVIDERS: ATTEND Emergency Medicine | DX: L97.522 Non-pressure chronic ulcer of other part of left foot with fat layer exposed (principal); I87.2 Venous insufficiency (chronic) (peripheral); L98.0 Pyogenic granuloma; I89.0 Lymphedema, not elsewhere classified; L03.032 Cellulitis of left toe; R60.0 Localized edema; I73.9 Peripheral vascular disease, unspecified; D21.22 Benign neoplasm of connective and other soft tissue of left lower limb, including hip; L60.3 Nail dystrophy; M79.675 Pain in left toe(s); K21.9 Gastro-esophageal reflux disease without esophagitis; E78.00 Pure hypercholesterolemia, unspecified; I10 Essential (primary) hypertension; E78.5 Hyperlipidemia, unspecified; G61.0 Guillain-Barre syndrome; Z87.891 Personal history of nicotine dependence; Z79.01 Long term (current) use of anticoagulants ==

== ENCOUNTER → 2020-05-06 | Outpatient (CLI) | payer OTHER | LOC: HYPER 13:31 | PROVIDERS: ATTEND Emergency Medicine | DX: L97.522 Non-pressure chronic ulcer of other part of left foot with fat layer exposed (principal); L84 Corns and callosities; L98.0 Pyogenic granuloma; L03.032 Cellulitis of left toe; L60.3 Nail dystrophy; R60.0 Localized edema; I89.0 Lymphedema, not elsewhere classified; I87.2 Venous insufficiency (chronic) (peripheral); I10 Essential (primary) hypertension; I73.9 Peripheral vascular disease, unspecified; D21.22 Benign neoplasm of connective and other soft tissue of left lower limb, including hip; E78.00 Pure hypercholesterolemia, unspecified; E78.5 Hyperlipidemia, unspecified; E66.01 Morbid (severe) obesity due to excess calories; G61.0 Guillain-Barre syndrome; K21.9 Gastro-esophageal reflux disease without esophagitis; M79.675 Pain in left toe(s); F41.9 Anxiety disorder, unspecified; F32.9 Major depressive disorder, single episode, unspecified; Z87.891 Personal history of nicotine dependence; Z68.42 Body mass index [BMI] 45.0-49.9, adult ==

== ENCOUNTER → 2020-05-20 | Outpatient (CLI) | payer OTHER | LOC: HYPER 13:04 | PROVIDERS: ATTEND Emergency Medicine | DX: I89.0 Lymphedema, not elsewhere classified (principal); L97.522 Non-pressure chronic ulcer of other part of left foot with fat layer exposed; L98.0 Pyogenic granuloma; L84 Corns and callosities; L03.032 Cellulitis of left toe; L60.3 Nail dystrophy; R60.0 Localized edema; D21.22 Benign neoplasm of connective and other soft tissue of left lower limb, including hip; E66.01 Morbid (severe) obesity due to excess calories; E78.00 Pure hypercholesterolemia, unspecified; E78.5 Hyperlipidemia, unspecified; G61.0 Guillain-Barre syndrome; I87.2 Venous insufficiency (chronic) (peripheral); I10 Essential (primary) hypertension; I73.9 Peripheral vascular disease, unspecified; K21.9 Gastro-esophageal reflux disease without esophagitis; M79.675 Pain in left toe(s); Z87.891 Personal history of nicotine dependence; Z68.42 Body mass index [BMI] 45.0-49.9, adult ==

== ENCOUNTER → 2020-06-03 | Outpatient (CLI) | payer OTHER | LOC: HYPER 12:41 | PROVIDERS: ATTEND Emergency Medicine | DX: L97.522 Non-pressure chronic ulcer of other part of left foot with fat layer exposed (principal); L98.0 Pyogenic granuloma; I89.0 Lymphedema, not elsewhere classified; I87.2 Venous insufficiency (chronic) (peripheral); L03.032 Cellulitis of left toe; I73.89 Other specified peripheral vascular diseases; R60.0 Localized edema; L84 Corns and callosities; L60.3 Nail dystrophy; M79.675 Pain in left toe(s); D21.22 Benign neoplasm of connective and other soft tissue of left lower limb, including hip; K21.9 Gastro-esophageal reflux disease without esophagitis; E78.00 Pure hypercholesterolemia, unspecified; I10 Essential (primary) hypertension; E78.5 Hyperlipidemia, unspecified; G61.0 Guillain-Barre syndrome; E66.9 Obesity, unspecified; Z68.42 Body mass index [BMI] 45.0-49.9, adult; Z87.891 Personal history of nicotine dependence; Z79.01 Long term (current) use of anticoagulants ==

== ENCOUNTER → 2020-06-17 | Outpatient (CLI) | payer OTHER | LOC: SJCVCIMAG 10:36 → SJCVC 10:36 | PROVIDERS: ATTEND Internal Medicine | DX: R94.31 Abnormal electrocardiogram [ECG] [EKG] (principal); I48.0 Paroxysmal atrial fibrillation; I11.0 Hypertensive heart disease with heart failure; I50.30 Unspecified diastolic (congestive) heart failure; I71.01 Dissection of thoracic aorta; E78.5 Hyperlipidemia, unspecified; I89.0 Lymphedema, not elsewhere classified; Z79.899 Other long term (current) drug therapy; Z87.891 Personal history of nicotine dependence ==

== ENCOUNTER → 2020-06-17 | Outpatient (CLI) | payer OTHER | LOC: HYPER 12:46 | PROVIDERS: ATTEND Emergency Medicine | DX: L97.522 Non-pressure chronic ulcer of other part of left foot with fat layer exposed (principal); I89.0 Lymphedema, not elsewhere classified; I87.2 Venous insufficiency (chronic) (peripheral); L98.0 Pyogenic granuloma; L03.032 Cellulitis of left toe; R60.0 Localized edema; I73.89 Other specified peripheral vascular diseases; L60.3 Nail dystrophy; M79.675 Pain in left toe(s); D21.22 Benign neoplasm of connective and other soft tissue of left lower limb, including hip; K21.9 Gastro-esophageal reflux disease without esophagitis; I10 Essential (primary) hypertension; E78.5 Hyperlipidemia, unspecified; G61.0 Guillain-Barre syndrome; Z87.891 Personal history of nicotine dependence; Z79.01 Long term (current) use of anticoagulants ==

== ENCOUNTER → 2020-07-01 | Outpatient (CLI) | payer OTHER | LOC: HYPER 12:57 | PROVIDERS: ATTEND Emergency Medicine | DX: L97.522 Non-pressure chronic ulcer of other part of left foot with fat layer exposed (principal); L84 Corns and callosities; I89.0 Lymphedema, not elsewhere classified; I87.2 Venous insufficiency (chronic) (peripheral); L98.0 Pyogenic granuloma; L03.032 Cellulitis of left toe; R60.0 Localized edema; I73.89 Other specified peripheral vascular diseases; L60.3 Nail dystrophy; D21.22 Benign neoplasm of connective and other soft tissue of left lower limb, including hip; E66.01 Morbid (severe) obesity due to excess calories; I10 Essential (primary) hypertension; E78.5 Hyperlipidemia, unspecified; G61.0 Guillain-Barre syndrome; K21.9 Gastro-esophageal reflux disease without esophagitis; M79.675 Pain in left toe(s); Z87.891 Personal history of nicotine dependence; Z68.42 Body mass index [BMI] 45.0-49.9, adult ==

== ENCOUNTER → 2020-07-15 | Outpatient (CLI) | payer OTHER | LOC: HYPER 13:09 | PROVIDERS: ATTEND Emergency Medicine | DX: L97.522 Non-pressure chronic ulcer of other part of left foot with fat layer exposed (principal); L84 Corns and callosities; L03.032 Cellulitis of left toe; L98.0 Pyogenic granuloma; L60.3 Nail dystrophy; D21.22 Benign neoplasm of connective and other soft tissue of left lower limb, including hip; E66.01 Morbid (severe) obesity due to excess calories; E78.00 Pure hypercholesterolemia, unspecified; E78.5 Hyperlipidemia, unspecified; I89.0 Lymphedema, not elsewhere classified; R60.0 Localized edema; I87.2 Venous insufficiency (chronic) (peripheral); I73.89 Other specified peripheral vascular diseases; I10 Essential (primary) hypertension; G61.0 Guillain-Barre syndrome; K21.9 Gastro-esophageal reflux disease without esophagitis; M79.675 Pain in left toe(s); Z87.891 Personal history of nicotine dependence; Z68.42 Body mass index [BMI] 45.0-49.9, adult ==

== ENCOUNTER → 2020-07-17 | Outpatient (CLI) | payer OTHER | LOC: SJCVC 12:47 | PROVIDERS: ATTEND Internal Medicine | DX: I11.0 Hypertensive heart disease with heart failure (principal); I50.32 Chronic diastolic (congestive) heart failure; I48.0 Paroxysmal atrial fibrillation; I71.01 Dissection of thoracic aorta; E78.5 Hyperlipidemia, unspecified; I89.0 Lymphedema, not elsewhere classified; E03.9 Hypothyroidism, unspecified; Z79.899 Other long term (current) drug therapy; Z87.891 Personal history of nicotine dependence; Z98.890 Other specified postprocedural states ==

== ENCOUNTER → 2020-08-12 | Outpatient (CLI) | payer OTHER | LOC: HYPER 14:05 | PROVIDERS: ATTEND Emergency Medicine | DX: L97.522 Non-pressure chronic ulcer of other part of left foot with fat layer exposed (principal); L84 Corns and callosities; L03.032 Cellulitis of left toe; L98.0 Pyogenic granuloma; L60.3 Nail dystrophy; D21.22 Benign neoplasm of connective and other soft tissue of left lower limb, including hip; E66.01 Morbid (severe) obesity due to excess calories; E78.00 Pure hypercholesterolemia, unspecified; E78.5 Hyperlipidemia, unspecified; I89.0 Lymphedema, not elsewhere classified; R60.0 Localized edema; I87.2 Venous insufficiency (chronic) (peripheral); I73.89 Other specified peripheral vascular diseases; I10 Essential (primary) hypertension; G61.0 Guillain-Barre syndrome; K21.9 Gastro-esophageal reflux disease without esophagitis; M79.675 Pain in left toe(s); Z87.891 Personal history of nicotine dependence; Z68.42 Body mass index [BMI] 45.0-49.9, adult ==

== ENCOUNTER → 2020-08-26 | Outpatient (CLI) | payer OTHER | LOC: HYPER 08:24 | PROVIDERS: ATTEND Emergency Medicine Emergency Medical Services | DX: L97.522 Non-pressure chronic ulcer of other part of left foot with fat layer exposed (principal); I89.0 Lymphedema, not elsewhere classified; L84 Corns and callosities; L03.032 Cellulitis of left toe; L98.0 Pyogenic granuloma; L60.3 Nail dystrophy; D21.22 Benign neoplasm of connective and other soft tissue of left lower limb, including hip; E66.01 Morbid (severe) obesity due to excess calories; E78.00 Pure hypercholesterolemia, unspecified; E78.5 Hyperlipidemia, unspecified; R60.0 Localized edema; I87.2 Venous insufficiency (chronic) (peripheral); I73.89 Other specified peripheral vascular diseases; I10 Essential (primary) hypertension; G61.0 Guillain-Barre syndrome; K21.9 Gastro-esophageal reflux disease without esophagitis; M79.675 Pain in left toe(s); Z87.891 Personal history of nicotine dependence; Z68.42 Body mass index [BMI] 45.0-49.9, adult ==

== ENCOUNTER → 2020-09-09 | Outpatient (CLI) | payer OTHER | LOC: HYPER 09:07 | PROVIDERS: ATTEND Emergency Medicine | DX: L97.522 Non-pressure chronic ulcer of other part of left foot with fat layer exposed (principal); L84 Corns and callosities; L03.032 Cellulitis of left toe; L98.0 Pyogenic granuloma; L60.3 Nail dystrophy; I89.0 Lymphedema, not elsewhere classified; D21.22 Benign neoplasm of connective and other soft tissue of left lower limb, including hip; E66.01 Morbid (severe) obesity due to excess calories; E78.00 Pure hypercholesterolemia, unspecified; E78.5 Hyperlipidemia, unspecified; R60.0 Localized edema; I87.2 Venous insufficiency (chronic) (peripheral); I73.89 Other specified peripheral vascular diseases; I10 Essential (primary) hypertension; G61.0 Guillain-Barre syndrome; K21.9 Gastro-esophageal reflux disease without esophagitis; M79.675 Pain in left toe(s); Z87.891 Personal history of nicotine dependence; Z68.42 Body mass index [BMI] 45.0-49.9, adult ==

== ENCOUNTER → 2020-09-30 | Outpatient (CLI) | payer OTHER | LOC: HYPER 14:00 | PROVIDERS: ATTEND Emergency Medicine | DX: L97.522 Non-pressure chronic ulcer of other part of left foot with fat layer exposed (principal); I87.2 Venous insufficiency (chronic) (peripheral); L03.032 Cellulitis of left toe; L98.0 Pyogenic granuloma; I89.0 Lymphedema, not elsewhere classified; L84 Corns and callosities; R60.0 Localized edema; I73.89 Other specified peripheral vascular diseases; L60.3 Nail dystrophy; M79.675 Pain in left toe(s); D21.22 Benign neoplasm of connective and other soft tissue of left lower limb, including hip; K21.9 Gastro-esophageal reflux disease without esophagitis; E78.00 Pure hypercholesterolemia, unspecified; N40.0 Benign prostatic hyperplasia without lower urinary tract symptoms; E78.5 Hyperlipidemia, unspecified; G61.0 Guillain-Barre syndrome; I10 Essential (primary) hypertension; E66.9 Obesity, unspecified; Z68.42 Body mass index [BMI] 45.0-49.9, adult; Z87.891 Personal history of nicotine dependence; Z79.01 Long term (current) use of anticoagulants; Z79.899 Other long term (current) drug therapy ==

== ENCOUNTER → 2020-10-14 | Outpatient (CLI) | payer OTHER | LOC: HYPER 10-13 16:11 | PROVIDERS: ATTEND Emergency Medicine | DX: I89.0 Lymphedema, not elsewhere classified (principal); L97.525 Non-pressure chronic ulcer of other part of left foot with muscle involvement without evidence of necrosis; L98.0 Pyogenic granuloma; L03.032 Cellulitis of left toe; I87.2 Venous insufficiency (chronic) (peripheral); I73.89 Other specified peripheral vascular diseases; R60.0 Localized edema; L60.3 Nail dystrophy; M79.675 Pain in left toe(s); D21.22 Benign neoplasm of connective and other soft tissue of left lower limb, including hip; I10 Essential (primary) hypertension; K21.9 Gastro-esophageal reflux disease without esophagitis; E78.00 Pure hypercholesterolemia, unspecified; E78.5 Hyperlipidemia, unspecified; G61.0 Guillain-Barre syndrome; E66.9 Obesity, unspecified; Z68.42 Body mass index [BMI] 45.0-49.9, adult; Z87.891 Personal history of nicotine dependence; Z79.01 Long term (current) use of anticoagulants; Z79.899 Other long term (current) drug therapy ==

== ENCOUNTER → 2020-10-30 | Outpatient (CLI) | payer OTHER | LOC: HYPER 08:59 | PROVIDERS: ATTEND Emergency Medicine Emergency Medical Services | DX: I89.0 Lymphedema, not elsewhere classified (principal); L97.522 Non-pressure chronic ulcer of other part of left foot with fat layer exposed; L98.0 Pyogenic granuloma; L03.032 Cellulitis of left toe; L84 Corns and callosities; E78.00 Pure hypercholesterolemia, unspecified; E78.5 Hyperlipidemia, unspecified; E66.01 Morbid (severe) obesity due to excess calories; R60.0 Localized edema; L60.3 Nail dystrophy; D21.22 Benign neoplasm of connective and other soft tissue of left lower limb, including hip; I87.2 Venous insufficiency (chronic) (peripheral); I73.89 Other specified peripheral vascular diseases; G61.0 Guillain-Barre syndrome; I10 Essential (primary) hypertension; K21.9 Gastro-esophageal reflux disease without esophagitis; M79.675 Pain in left toe(s); Z68.42 Body mass index [BMI] 45.0-49.9, adult; Z87.891 Personal history of nicotine dependence; Z79.01 Long term (current) use of anticoagulants; Z79.899 Other long term (current) drug therapy ==

== ENCOUNTER → 2020-11-11 | Outpatient (CLI) | payer OTHER | LOC: HYPER 12:15 | PROVIDERS: ATTEND Emergency Medicine | DX: I89.0 Lymphedema, not elsewhere classified (principal); L97.526 Non-pressure chronic ulcer of other part of left foot with bone involvement without evidence of necrosis; I87.2 Venous insufficiency (chronic) (peripheral); L98.0 Pyogenic granuloma; L03.032 Cellulitis of left toe; R60.0 Localized edema; I73.89 Other specified peripheral vascular diseases; K21.9 Gastro-esophageal reflux disease without esophagitis; E78.00 Pure hypercholesterolemia, unspecified; N40.0 Benign prostatic hyperplasia without lower urinary tract symptoms; E78.5 Hyperlipidemia, unspecified; I10 Essential (primary) hypertension; G61.0 Guillain-Barre syndrome; E66.9 Obesity, unspecified; Z68.42 Body mass index [BMI] 45.0-49.9, adult; Z87.891 Personal history of nicotine dependence; Z79.01 Long term (current) use of anticoagulants; Z79.899 Other long term (current) drug therapy ==

== ENCOUNTER → 2020-11-13 | Outpatient (CLI) | payer OTHER ==
[~2020-11-13] MED LIST changes: +TORSEMIDE20 MG PO; +TYLENOL325 M1 PO
== END ==
LOC: SJCVC 14:36
PROVIDERS: ATTEND Internal Medicine
DX: R94.31 Abnormal electrocardiogram [ECG] [EKG] (principal); I11.0 Hypertensive heart disease with heart failure; I50.30 Unspecified diastolic (congestive) heart failure; I48.0 Paroxysmal atrial fibrillation; I71.01 Dissection of thoracic aorta; R06.02 Shortness of breath; E78.5 Hyperlipidemia, unspecified; I89.0 Lymphedema, not elsewhere classified; E03.9 Hypothyroidism, unspecified; Z79.899 Other long term (current) drug therapy; Z87.891 Personal history of nicotine dependence

== ENCOUNTER 2020-11-24 17:15 | Inpatient (IN) | payer OTHER ==
[~2020-11-24] VITALS: Ht 172.7 cm; Wt 127.6 kg
[2020-11-24 17:15] VITALS: BP 105/72
[~2020-11-24 17:15] MED LIST changes: -TORSEMIDE20 MG PO; -TYLENOL325 M1 PO
[2020-11-24 19:39] LABS: MCHC 33.2 g/dL (28.0-37.0); WBC 11.3 thou/uL (4.0-11.0)
[2020-11-24 19:40] LABS: HEMATOCRIT 49.9 % (42.0-52.0); HEMOGLOBIN 16.6 gm/dL (14.0-18.0); MCV 93.4 fL (80.0-100.0); PLATELET COUNT 359 thou/uL (150-400); RBC 5.34 mil/uL (4.50-6.00); RDW 19.6 % (10.5-14.5)
[2020-11-24 19:49] LABS: CALCIUM 9.4 mg/dL (8.5-10.1); CREATININE 2.1 mg/dL (0.7-1.3); POTASSIUM 5.6 mmol/L (3.5-5.1)
[2020-11-24 19:54] LABS: ALBUMIN 2.7 g/dL (3.4-5.0); TOTAL BILIRUBIN 1.4 mg/dL (0.2-1.0); TOTAL PROTEIN 6.7 g/dL (6.4-8.2)
[2020-11-24 20:18] LABS: ABSOLUTE NEUTROPHILS 8.1 thou/uL (1.4-8.2); NUCLEATED RBCS 2 /100WBC
[2020-11-24 20:19] LABS: ANISOCYTOSIS 1+
[2020-11-24 20:20] VITALS: BP 96/57
[2020-11-24] MEDS ORDERED: COZAAR 25 MG TA25 M1 PO (20:45)
[2020-11-24 20:59] VITALS: BP 110/61
[2020-11-24 21:41] VITALS: BP 104/65
[2020-11-24] MEDS ORDERED: TORSEMIDE20 MG PO ×2 (23:06→23:07)
[2020-11-24] MEDS ORDERED: POTASSIUM20 PO (23:08)
[2020-11-24] MEDS ORDERED: TYLENOL325 M1 PO (23:10)
--- NOTE | 2020-11-25 | NUR ---
ADMIT FROM ER. CARE PLAN, INTERVENTIONS, MED REC COMPLETED. COVID PCR IS NEGATIVE. PT HAS HAD BOTH DOSES OF COVID VACCINE ONE MONTH AGO. DILTIAZAM DRIP STARTED FOR RATE CONTROL. CONSULT FOR RENAL TO BE CALLED IN.
[2020-11-25 03:45] VITALS: BP 114/68
[2020-11-25 08:04] VITALS: BP 107/61
[2020-11-25 09:15] LABS: ALBUMIN 2.5 g/dL (3.4-5.0); CREATININE 2.1 mg/dL (0.7-1.3); PHOSPHORUS 5.2 mg/dL (2.5-4.9)
--- NOTE | 2020-11-25 09:39 | EKG ---
[place] [address] [address] [place] [address] ELECTROCARDIOGRAM REPORT Name: ALEXEI DUNN Room #: 349-I ADM IN .R.#: [id number] Admission: 11/24/20 Attend Phys: Favian Sandy MD Discharge: Date of : 52 Report #: [id number] [facility] ED Test Date: 2020-11-24 Test Time: 19:16:42 Pat Name: ALEXEI DUNN Department: Room: [facility] Gender: M Rental Coordinator: SERVANDO : 1950 Requested By: Gary Huitron Order Number: [id number] MD: Guille Lira Measurements Intervals [place] Rate: 124 P: LA: QRS: 101 QRSD: 123 T: 38 QT: 369 QTc: 530 Interpretive Statements Atrial fibrillation RBBB and LPFB Compared to ECG 09/26/2007 21:09:28 Heart rate has slowed Right bundle branch block is present Electronically Signed On 11-25-2020 9:38:43 CDT by Guille Lira [email or web address] <ELECTRONICALLY SIGNED> By: Guille Lira MD, [facility] 11/25/2038 15 15 Guille Lira MD, [facility] /EPI
[2020-11-25 09:47] LABS: URINE BILIRUBIN NEGATIVE (Negative); URINE BLOOD NEGATIVE (Negative); URINE CLARITY CLEAR; URINE COLOR YELLOW; URINE GLUCOSE-RANDOM* NEGATIVE (Negative); URINE KETONES NEGATIVE (Negative); URINE LEUKOCYTES-REFLEX NEGATIVE (Negative); URINE NITRITE-REFLEX NEGATIVE (Negative); URINE PROTEIN (DIPSTICK) NEGATIVE (Negative); URINE UROBILINOGEN 0.2 E.U./dl (0.2-1.0)
--- NOTE | 2020-11-25 12:20 | 2DMMODE ---
[facility] [place] [address] 2 D/M-MODE ECHOCARDIOGRAM Name: ALEXEI DUNN Room #: 349-I ADM IN .R.#: [id number] Admission: 11/24/20 Attend Phys: Favian Sandy MD Discharge: Date of : 52 Report #: [id number] THIS REPORT FOR: cc: Julisa Cordero Emily S. DO Lundgren, Craig H. MD [facility] ~ APPROVED REPORT Study performed: 11/25/2020 11:13:28 EXAM: Comprehensive 2D, Doppler, and color-flow Echocardiogram Patient Location: Bedside Room #: 349 Status: routine BSA: 2.28 HR: 72 bpm BP: 107/61 mmHg Rhythm: Atrial Fibrillation Other Information Study Quality: Poor/limited measurement available Technically limited study due to limited mobility, body habitus. Indications Congestive Heart Failure Dyspnea Hx: Ao dissection repair, PAF, HTN. Echo Enhancing Agent Indication: Endocardial border delineation Agent(s) / Amount(s) Used: Optison 4 cc 2D Dimensions RVDd: 44.08 mm IVSd: 11.71 (7-11mm) LVOT Diam: 23.99 (18-24mm) LVDd: 41.53 mm PWd: 8.98 (7-11mm) Ascending Ao: 29.12 (22-36mm) LVDs: 30.34 (25-40mm) Left Atrium: 48.87 (27-40mm) Aortic Root: 44.89 mm Aortic Valve AoV Peak Breezy.: 0.66 m/s [facility] [address] [place] [address] 2 D/M-MODE ECHOCARDIOGRAM Name: ALEXEI DUNN Room #: 349-I ADM IN .R.#: [id number] Admission: 11/24/20 Attend Phys: Favian Sandy MD Discharge: Date of : 52 Report #: [id number] AO Peak Gr.: 1.74 mmHg LVOT Max P.02 mmHg LVOT Max V: 0.71 m/s DINA Vmax: 4.88 cm2 Mitral Valve MV Decel. Time: 181.72 ms MV E Max Breezy.: 1.03 m/s Pulmonary Valve PV Peak Breezy.: 0.78 m/s PV Peak Gr.: 2.41 mmHg Tricuspid Valve TR Peak Breezy.: 2.22 m/s RAP Estimate: 10.00 mmHg TR Peak Gr.: 20.00 mmHg PA Pressure: 30.00 mmHg Left Ventricle The left ventricle is normal size. There is normal LV segmental wall motion. There is normal left ventricular wall thickness. Left ventricular systolic function is normal. LVEF is 60%. This study is not technically sufficient to allow evaluation of the LV diastolic function due to atrial fibrillation. Right Ventricle Right ventricle appears dialted with normal funtion. Atria Both atria appear mildly dilated. Aortic Valve The aortic valve is normal in structure. Trace aortic regurgitation. There is no aortic valvular stenosis. Mitral Valve The mitral valve is normal in structure. There is no mitral valve regurgitation noted. No evidence of mitral valve stenosis. Tricuspid Valve The tricuspid valve is normal in structure. Mild tricuspid regurgitation. Estimated PAP is 25-30mmHg. Pulmonic Valve The pulmonary valve is normal in structure. Trace pulmonic regurgitation. Great Vessels [facility] [address] [place] [address] 2 D/M-MODE ECHOCARDIOGRAM Name: ALEXEI DUNN Room #: 349-I ADM IN M.R.#: [id number] Admission: 11/24/20 Attend Phys: Favian Sandy MD Discharge: Date of : 52 Report #: [id number] Aortic root is dilated (4.5cm). IVC is dilated and collapses >50% with inspiration. Pericardium There is no pericardial effusion. <Conclusion> Left ventricular systolic function is normal. There is normal LV segmental wall motion. LVEF is 60%. Both atria appear mildly dilated. The aortic valve is normal in structure. Trace aortic regurgitation, no stenosis. The mitral valve is normal in structure. No mitral valve regurgitation. Mild tricuspid regurgitation. Estimated PAP of 25-30mmHg. There is no pericardial effusion. <ELECTRONICALLY SIGNED> By: Guille Lira MD, [facility] 11/25/20 1220 122 19 Guille Lira MD, [facility] /INF
--- NOTE | 2020-11-25 13:41 | NUR ---
INITIAL ASSESSMENT: Received consult. CHERRI reviewed chart and spoke with nursing and attending physician. Pt was admitted from [facility] due to CHF. Pt currently on IV abs and 2L of O2. Pt had negative COVID test on 11/24. Pt has been fully vaccinated for COVID. CHERRI met with pt at bedside. Introduced role of SW. Pt is alert/orientated x 4. Pt reports he lives alone in an apt at [facility]. Pt has a cane and walker. Pt was not on O2 prior to admission. Pt has been to the skilled unit at the facility in the past. Pt's PCP is Dr. Julisa Cordero. Plan is for pt to return to the facility when medically stable. PT/OT ordered today to evaluate pt for discharge needs. CHERRI spoke with Kemi Gomez, Director at [facility], to provide update. Pt will need to be re-evaluated prior to discharge to determine if pt needs SNF or can return to his AL apt with HH services. Info to be faxed to [place] at [phone]. CHERRI is following to assist as needed with discharge planning.
[2020-11-25 15:22] VITALS: BP 82/56
--- NOTE | 2020-11-25 19:57 | NUR ---
PT HAS LYMPHEDEMA WRAPS AND WILL BE HANDLED PER AJIT FROM CLINIC
[2020-11-25 20:46] VITALS: BP 90/56
[2020-11-26 06:34] LABS: CALCIUM 8.6 mg/dL (8.5-10.1); CREATININE 2.3 mg/dL (0.7-1.3); POTASSIUM 4.9 mmol/L (3.5-5.1)
--- NOTE | 2020-11-26 06:38 | NUR ---
NO COMPLAINTS FROM PT OVERNIGHT. WOUND CARE TODAY FOR CARES ON LEG WRAPS. PT SLEEPS IN CHAIR OVERNIGHT.
[2020-11-26 07:49] VITALS: BP 101/62
[2020-11-26 11:05] VITALS: BP 86/53
--- NOTE | 2020-11-26 13:18 | NUR ---
PT NOT PROGRESSING TOWARDS DISCHARGE, WAS HAVING AN EPISODE OF HYPOTENSION STATES BEING DIZZY WHEN STANDING, COULD NOT WORK WITH PT TODAY. PT SEEN TAKING NC ON AND OFF
--- NOTE | 2020-11-26 14:43 | NUR ---
cm s/w pt to discuss hh options, as the doctor has recommended. pt declines hh, stated "I had it in the past and it was unsucessful." cm encouraged pt to think about it some more to see if he'll reconsider.
[2020-11-26 14:58] VITALS: BP 83/52
--- NOTE | 2020-11-26 17:34 | EKG ---
[address] [address] ELECTROCARDIOGRAM REPORT Name: ALEXEI DUNN Room #: 355-P ADM IN M.R.#: [id number] Admission: 11/24/20 Attend Phys: Favian Sandy MD Discharge: Date of : 52 Report #: [id number] [facility] Test Date: 2020-11-26 Test Time: 07:55:57 Pat Name: ALEXEI DUNN Department: Room: [facility] Gender: M Zinc Plater: SOBIA : 1950 Requested By: Guille Lira Order Number: [id number] MD: Guille Lira Measurements Intervals [place] Rate: 97 P: [place]: QRS: 104 QRSD: 143 T: -1 QT: 400 QTc: 508 Interpretive Statements Atrial fibrillation IVCD, consider atypical RBBB Compared to ECG 11/24/2020 19:16:42 No significant change was found Electronically Signed On 11-26-2020 17:34:00 CDT by Guille Lira [email or web address] <ELECTRONICALLY SIGNED> By: Guille Lira MD, [facility] 11/26/20 1734 [phone] Guille Lira MD, FAC /EPI
[2020-11-26 19:28] VITALS: BP 90/51
[2020-11-27] VITALS (7 sets, daily range): BP systolic 72–95; BP diastolic 9–72
[2020-11-27 06:05] LABS: CALCIUM 8.2 mg/dL (8.5-10.1); CREATININE 2.8 mg/dL (0.7-1.3); POTASSIUM 5.7 mmol/L (3.5-5.1)
--- NOTE | 2020-11-27 07:34 | NUR ---
BLOOD PRESSURES STILL SOFT WITH MEDICATIONS HELD. K+ STILL ELEVATED. PT SLEEPS IN HIGH BACK CHAIR OVERNIGHT. NO COMPLAINTS OF PAIN. PT ENJOYING NEW ROOM THAT HAS HEAT.
[2020-11-27 10:50] LABS: HEMATOCRIT 47.3 % (42.0-52.0); HEMOGLOBIN 15.8 gm/dL (14.0-18.0); MCH 31.6 pg (26.0-34.0); MCHC 33.4 g/dL (28.0-37.0); MCV 94.8 fL (80.0-100.0); RBC 4.99 mil/uL (4.50-6.00); RDW 20.1 % (10.5-14.5); WBC 9.4 thou/uL (4.0-11.0)
[2020-11-27 12:08] LABS: ABSOLUTE NEUTROPHILS 7.3 thou/uL (1.4-8.2); ANISOCYTOSIS SLIGHT; NUCLEATED RBCS 5 /100WBC; POLYCHROMASIA 2+; SCHISTOCYTES FEW; TARGET CELLS OCCASIONAL; TEARDROPS FEW
[2020-11-27 12:12] LABS: PLATELET COUNT 272 thou/uL (150-400)
--- NOTE | 2020-11-27 14:59 | NUR ---
SW reviewed chart and spoke with nursing and attending physician. Pt is on 2L of O2. Pt was not on O2 prior to admission. Pt is progressing towards goals for discharge. Discharge home is anticipated in 1-2 days. SW discussed with [facility] rehab trainer to see if pt may be a candidate for inpt acute rehab. SW is following to assist as needed with discharge planning.
--- NOTE | 2020-11-27 17:32 | NUR ---
assumed care of pt at 0700. pt aox4 flat affect voicing no particular concerns. hypotensive this am - addressed with cardio - meds adjusted. reports some dizziness when getting up. up to chair for most of the shift. lymph wraps changed by therapist. dressings changed per order. wcm.
[2020-11-28] VITALS (22 sets, daily range): BP systolic 69–122; BP diastolic 35–59
--- NOTE | 2020-11-28 04:52 | NUR ---
PT MAKING POOR PROGRESS TOWARDS GOALS. NOTED UOP ONLY 50ML OVERNIGHT. PT SITTING IN CHAIR OVERNIGHT. PT REPORTING MILD SOA EVEN WHILE AT REST. O2 USE ENCOURAGED TO HELP PT TO SIT BACK IN CHAIR AND SLEEP. PER PT, HE WAS ABLE TO SLEEP SOME OVERNIGHT BUT AMOUNT OF TIME IS UNKNOWN. OFFERED TO ASSIST PT IN BEING MORE COMFORTABLE BUT PT DENIED ANY ASSISTACE AT THIS TIME.
[2020-11-28 04:56] LABS: ALBUMIN 2.5 g/dL (3.4-5.0); CALCIUM 8.2 mg/dL (8.5-10.1); CREATININE 3.5 mg/dL (0.7-1.3); PHOSPHORUS 7.3 mg/dL (2.5-4.9)
[2020-11-28 04:58] LABS: POTASSIUM 6.1 mmol/L (3.5-5.1)
[2020-11-28 12:22] LABS: URINE BILIRUBIN NEGATIVE (Negative); URINE BLOOD NEGATIVE (Negative); URINE CLARITY CLEAR; URINE COLOR YELLOW; URINE GLUCOSE-RANDOM* NEGATIVE (Negative); URINE KETONES NEGATIVE (Negative); URINE LEUKOCYTES TRACE (Negative); URINE NITRITE NEGATIVE (Negative); URINE PROTEIN (DIPSTICK) TRACE (Negative); URINE SPECIFIC GRAVITY >= 1.030 (1.005-1.035)
[2020-11-28 12:36] LABS: PROT/CREAT RATIO 0.2; URINE CREATININE-RANDOM* 252.9 mg/dL; URINE PROTEIN-RANDOM* 45.2 mg/dL (<11.9)
--- NOTE | 2020-11-28 15:19 | NUR ---
CHERRI reviewed chart and spoke with nursing and attending physician. Pt is progressing towards goals for discharge. Pt is on 2L of O2. Pt to have a renal ultrasound today. CHERRI discussed case with [facility] COMEDIAN and liaison who state they are able to accept pt when he is ready for discharge. [facility] is able to accept pt over the weekend. CHERRI met with pt at bedside to provide update. Pt is aware and in agreement with discharge plan. CHERRI spoke with Kemi, Director of AL at [facility], to provide update and discuss discharge plan. Kemi states that pt has been calling and asking for her to come pick up attendant his lymphedema wraps and wash them and bring them back. CHERRI discussed with [facility] rehabilitation coordinator, who states that pt will be able to wash them on [facility]. CHERRI updated attending physician that pt can discharge to [facility] over the weekend. CHERRI is following to assist as needed with discharge planning.
--- NOTE | 2020-11-28 17:20 | NUR ---
[facility] FOLLOWING FOR ADMISSION TO ACUTE REHAB. IF PATIENT IS MEDICALLY STABLE AND READY TO TRANSFER TO ACUTE REHAB OVER THE WEEKEND, PLEASE CONTACT CLAY MINE CUTTING MACHINE OPERATOR AT [phone]. THANK YOU.
[2020-11-28 17:22] LABS: BE(vivo) -10.5 mmol/L (-2 to +3); HCO3 16.8 mmol/L (22.0-26.0); PCO2 42.4 mmHg (35.0-45.0); PO2 87.2 mmHg (80.0-100.0); pH 7.217 (7.360-7.450); sO2 94.8 % (92.0-98.0)
[2020-11-28 17:29] LABS: HEMATOCRIT 48.2 % (42.0-52.0); MCH 31.2 pg (26.0-34.0); MCHC 33.2 g/dL (28.0-37.0); RBC 5.12 mil/uL (4.50-6.00); RDW 19.2 % (10.5-14.5); WBC 13.4 thou/uL (4.0-11.0)
[2020-11-28 17:31] LABS: CALCIUM 8.3 mg/dL (8.5-10.1); CREATININE 3.8 mg/dL (0.7-1.3)
[2020-11-28 17:33] LABS: POTASSIUM 6.1 mmol/L (3.5-5.1)
--- NOTE | 2020-11-28 17:53 | NUR ---
VAT PLACED A CL FOR SEPSIS POST LAP WINDING MACHINE OPERATOR.
--- NOTE | 2020-11-28 19:10 | NUR ---
PT ARRIVED TO ICU AT 1700. PT ALERT AND ORIENTED TO PERSON AND PLACE. PT VERY FATIGUED AND USING ACCESSORY MUSCLES TO BREATHE. REPORT GIVEN AT BEDSIDE TO MYSELF BY LYDIA ESTRADA. PT'S HR FLUCTUATING BETWEEN 40-80S, PT HYPOTENSIVE WITH MAP IN 50s. CRITICAL LABS CALLED TO DR BLACKWOOD, RENAL AT 1739 DUE CRITICAL POTASSIUM. SPOKE TO DR BLACKWOOD AT 1752 ORDERS GIVEN AT THAT TIME. DR ZAMORA CALLED AT 1807 TO UPDATE ON PT CONDITION. ORDERS GIVEN AT THAT TIME. DR SCHRADER CALLED FOR STAT CONSULT AT 1800. PT BP IMPROVED ON LEVOPHED GTT. PT REMAINS CRITICAL. AWAITING PHARMACY TO SEND INSULIN TO HELP IMPROVE POTASSIUM.
--- NOTE | 2020-11-28 19:14 | NUR ---
RN ASSUMED PT'S CARE AT 0700AM, PT IS A&OX3, RN HAS REPORTED DR ABOUT PT'S HIGH POTASSIUM AND ANURIC, NEW ORDER RECEIVED, NEW BURTON CATHETER PLACEMENT, PT IS ON O2 4L/MIN/NC, PT HAS SOB WITH ACTIVITIES, PT LIKE TO SIT AT CHAIR , WE CALLED ADMINISTRATIVE PROJECT COORDINATOR ,BECAUSE PT HAS LOW HR TO 37, LOW BP AND SOB , RECEIVED ORDER PT TRANSFERED TO ICU ABOUT 1700PM, RN HAS GIVING BEDSIDE REPORT , RN HAS NOTIFIED PT'S FAMILY ABOUT IN ICU.
[2020-11-29] VITALS (97 sets, daily range): BP systolic 89–122; BP diastolic 33–62
[2020-11-29 02:32] LABS: CALCIUM 7.5 mg/dL (8.5-10.1); CREATININE 3.5 mg/dL (0.7-1.3); PHOSPHORUS 8.7 mg/dL (2.6-4.7); POTASSIUM 4.6 mmol/L (3.5-5.1)
--- NOTE | 2020-11-29 06:25 | NUR ---
ASSUMED CARE OF PATIENT AT 1900. DR SCHRADER NOTIFIED OF PATIENT 02 NEEDS. RENAL UPDATED ON PATIENT STATUS. ORDERS TO HOLD FLUIDS RECIEVED. INCREASED URINE OUTPUT THROUGH THE NIGHT, RESTING MORE COMFORTABLY AT THIS TIME. INFECTIOUS DISEASE NOT CONSULTED, WILL CLARIFY THIS. WORKING TOWARDS POC GOALS
[2020-11-29 09:07] LABS: MAGNESIUM 2.6 mg/dL (1.8-2.4)
[2020-11-29 09:32] LABS: FOLIC ACID 5.1 ng/mL (8.6-58.9)
[2020-11-29 10:06] LABS: BE(vivo) -5.3 mmol/L (-2 to +3); HCO3 20.2 mmol/L (22.0-26.0); PCO2 39.4 mmHg (35.0-45.0); sO2 95.5 % (92.0-98.0)
[2020-11-29 10:07] LABS: pH 7.327 (7.360-7.450)
--- NOTE | 2020-11-29 11:12 | EKG ---
[address] [address] ELECTROCARDIOGRAM REPORT Name: ALEXEI DUNN Room #: 240- ADM IN M.R.#: [id number] Admission: 11/24/20 Attend Phys: Favian Sandy MD Discharge: Date of : 52 Report #: [id number] [facility] Test Date: 2020-11-28 Test Time: 16:40:41 Pat Name: ALEXEI DNUN Department: Room: 240 Gender: M Juice Tester: FSCHWALBE : 1950 Requested By: Favian Sandy Order Number: [id number] MD: Guille Lira Measurements Intervals [place] Rate: 57 P: [place]: QRS: 115 QRSD: 143 T: 33 QT: 481 QTc: 469 Interpretive Statements Atrial fibrillation Right bundle branch block Compared to ECG 11/28/2020 16:39:57 No significant changes found Electronically Signed On 11-29-2020 11:12:17 CDT by Guille Lira [email or web address] <ELECTRONICALLY SIGNED> By: Guille Lira MD, [facility] 11/29/20 1112 [facility] 1640 Guille Lira MD, FACC /EPI
--- NOTE | 2020-11-29 11:12 | EKG ---
[address] [address] ELECTROCARDIOGRAM REPORT Name: ALEXEI DUNN Room #: 240- ADM IN M.R.#: [id number] Admission: 11/24/20 Attend Phys: Favian Sandy MD Discharge: Date of : 52 Report #: [id number] [facility] Test Date: 2020-11-28 Test Time: 16:39:57 Pat Name: ALEXEI DUNN Department: Room: 240 Gender: M Senior Warehouse Clerk: FSCHWALBE : 1950 Requested By: Favian Sandy Order Number: [id number] MD: Guille Lira Measurements Intervals [place] Rate: 123 P: [place]: QRS: 95 QRSD: 115 T: 185 QT: 347 QTc: 497 Interpretive Statements Atrial fibrillation Right bundle branch block Baseline wander in lead(s) V4 Compared to ECG 11/26/2020 07:55:57 No significant change was found Electronically Signed On 11-29-2020 11:11:59 CDT by Guille Lira [email or web address] <ELECTRONICALLY SIGNED> By: Guille Lira MD, [facility] 11/29/20 1111 [id number] 163 Guille Lira MD, [facility] /EPI
[2020-11-29 18:38] LABS: URINE BILIRUBIN NEGATIVE (Negative); URINE BLOOD 3+ (Negative); URINE CLARITY CLEAR; URINE COLOR YELLOW; URINE GLUCOSE-RANDOM* NEGATIVE (Negative); URINE KETONES NEGATIVE (Negative); URINE LEUKOCYTES-REFLEX TRACE (Negative); URINE NITRITE-REFLEX NEGATIVE (Negative); URINE PROTEIN (DIPSTICK) NEGATIVE (Negative); URINE UROBILINOGEN 0.2 E.U./dl (0.2-1.0)
--- NOTE | 2020-11-29 18:45 | NUR ---
Patient not progressing towards plan of care as evidence by increasing lactic acid, lack of appetite, continued need of levophed, and patient drowsiness. Plan of care is to continue to monitor patient assessment, vital signs, urine output, and wound care. He did allow staff to turn him today and is very cooperative with therapies/treatments.
[2020-11-29 18:52] LABS: BACTERIA-REFLEX 1-9 Few /HPF (None Seen); CRYSTALS None Seen /LPF (None Seen); FINE GRANULAR CASTS 0-3 Few /LPF (None Seen); HYALINE CASTS 0-3 Few /LPF (None Seen); SQUAMOUS None Seen /LPF (0-3); URINE WBC-REFLEX 0-5 Rare /HPF (0-5)
--- NOTE | 2020-11-29 20:06 | NUR ---
LACTIC ACID CAME BACK 3.0. DR. SCHRADER NOTIFIED, NO ORDERS RECEIVED.
[2020-11-30] VITALS (95 sets, daily range): BP systolic 76–123; BP diastolic 46–67
[2020-11-30 04:40] LABS: ABSOLUTE NEUTROPHILS 6.3 thou/uL (1.4-8.2); BASOPHILS 0.1 % (0.0-2.0); EOSINOPHILS 0.5 % (0.0-3.0); HEMATOCRIT 44.5 % (42.0-52.0); HEMOGLOBIN 14.7 gm/dL (14.0-18.0); LYMPHOCYTES 10.5 % (24.0-44.0); MCH 31.2 pg (26.0-34.0); MCHC 33.1 g/dL (28.0-37.0); MCV 94.4 fL (80.0-100.0); MONOCYTES 8.1 % (1.0-8.0); PLATELET COUNT 230 thou/uL (150-400); POLYS 80.8 % (36.0-66.0); RBC 4.71 mil/uL (4.50-6.00); RDW 19.8 % (10.5-14.5); WBC 8.9 thou/uL (4.0-11.0)
[2020-11-30 04:57] LABS: ALBUMIN 1.7 g/dL (3.4-5.0); CALCIUM 7.1 mg/dL (8.5-10.1); CREATININE 2.9 mg/dL (0.7-1.3); MAGNESIUM 2.7 mg/dL (1.8-2.4); PHOSPHORUS 7.4 mg/dL (2.5-4.9); TOTAL BILIRUBIN 0.9 mg/dL (0.2-1.0); TOTAL PROTEIN 5.2 g/dL (6.4-8.2)
--- NOTE | 2020-11-30 06:34 | NUR ---
PT A/0X4. BURTON IN PLACE WITH GOOD OUTPUT. ONLY PT REQUEST WAS FOR SOME ICE WATER AT 0300. FOLLOW POC WITH LEVO INFUSING AT 30ML/HR. BP HAVE BEEN CONSISTENT OVERNIGHT AND HR'S IN 90'S. IVPB VANCO PER POC. PT NOT EATING ONLY WANTING NEPRO SUPPLEMENTS.
--- NOTE | 2020-11-30 15:36 | NUR ---
ASSUMED PATIENT CARE AT 0700. BLOOD CULTURES POSITIVE GRAM+ COCCI. COMMUNICATED TO DR. VÁSQUEZ. NEW SET OF CULTURES DRAWN FROM CENTRAL LINE PER ORDERS. ID CONSULTED, DR. MONTGOMERY AT BEDSIDE. LEVO RUNNING AT 30 MCG FROM PREVIOUS SHIFT. TITRATED DOWN TO 12 MCG THROUGHOUT DAY. PATIENT REMAINS ON 14L OXYGEN AND BECOMES DYSPNEIC WITH MOVEMENT. LEFT GREAT TOE DRESSING CHANGED TO DAKINS SOAKED GAUZE PER NEW WOUND CARE ORDER. POOR APPETITE, SOME NEPHRO SUPPLEMENTS CONSUMED, VERY LITTLE FOOD CONSUMED. REMAINS IN AFIB WITH RATE 90-115. WILL CONTINUE TO MONITOR.
[2020-12-01] VITALS (89 sets, daily range): BP systolic 68–119; BP diastolic 31–64
[2020-12-01 04:55] LABS: BASOPHILS 0.2 % (0.0-2.0); EOSINOPHILS 0.3 % (0.0-3.0); HEMATOCRIT 46.5 % (42.0-52.0); HEMOGLOBIN 15.6 gm/dL (14.0-18.0); LYMPHOCYTES 8.8 % (24.0-44.0); MCH 31.5 pg (26.0-34.0); MCHC 33.6 g/dL (28.0-37.0); MCV 93.8 fL (80.0-100.0); MONOCYTES 6.6 % (1.0-8.0); PLATELET COUNT 231 thou/uL (150-400); POLYS 84.1 % (36.0-66.0); RBC 4.96 mil/uL (4.50-6.00); RDW 19.7 % (10.5-14.5); WBC 10.6 thou/uL (4.0-11.0)
[2020-12-01 05:15] LABS: ALBUMIN 1.7 g/dL (3.4-5.0); CALCIUM 7.7 mg/dL (8.5-10.1); CREATININE 2.8 mg/dL (0.7-1.3); PHOSPHORUS 7.2 mg/dL (2.6-4.7); POTASSIUM 4.5 mmol/L (3.5-5.1)
--- NOTE | 2020-12-01 06:57 | NUR ---
Received pt. on 14L/HF and maintaining O2 sat > 90%. Shortness of breath with exertion. Afebrile. Levo infusing at 12mcg/min to keep MAP >60. Repositioned for comfort. Complete bed bath given this am. Afebrile.
--- NOTE | 2020-12-01 07:46 | NUR ---
Pt TRANSFERRED TO ICU. WILL PLACE ON HOLD AND AWAIT NEW ORDERS TO RESUME
--- NOTE | 2020-12-01 07:57 | NUR ---
PATIENT TRANSFERRED TO ICU DUE TO A CHANGE IN MEDICAL STATUS. WILL NEED NEW ORDERS ONCE MEDICALLY APPROPRIATE.
--- NOTE | 2020-12-01 15:16 | NUR ---
DROWSY BUT AROUSABLE AND WHEN AWAKE IS ORIENTED AND DENIES PAIN. ON LEVO AND WEANING BP TOLERATES, AFIB ON THE MONITOR. OTHER VITALS STABLE. TOLERATING DIET BUT POOR APPETITE NOTED. WILL CONTINUE WITH POC. ASSESSMENT DOCUMENTED.
--- NOTE | 2020-12-01 20:32 | NUR ---
Assumed pt care at 1915; pt very tachypnic at 32-38, hypotensive (SBP 80's, MAP <60). O2 sat was 89-90%. Titrated down Cardizem gtt from 5 mg/hr to 3 mg/hr and increased Levophed gtt from 8 mcg/min to 15 mcg/min over 1 hour. Pt turned to left side at 1949, desaturated down to 86%. Pt turned back to semi-fowlers, still sat <90%; pt placed on 100% NRB mask in addition to 14 L HFC he was on. O2 sat still only 90-91%. Dr Gaviria called at 2019, orders received. STAT ABG being drawn now and will place pt on bipap.
--- NOTE | 2020-12-01 20:51 | NUR ---
Pt placed on bipap AVAPS mode Tv 600, EPAP 12, rate 16, FiO2 100%. Sat 86% Awaiting ABG results to call to Dr. Gaviria
[2020-12-01 20:53] LABS: BE(vivo) -10.4 mmol/L (-2 to +3); HCO3 22.9 mmol/L (22.0-26.0); PO2 89.7 mmHg (80.0-100.0); sO2 91.6 % (92.0-98.0)
[2020-12-01 20:54] LABS: PCO2 88.7 mmHg (35.0-45.0)
--- NOTE | 2020-12-01 21:40 | NUR ---
Spoke with Dr. Renteria at 2109; he had spoken with Dr Gaviria and was updated on pt's current status. Orders received. Called and spoke with pt's designated reprentative, Neville Redmond, and updated him on pt's status. Neville was pt's roommate for 15 years prior to pt going to [facility] one and a half years ago. Neville stated pt has no current DPOA and has only distantly related family who live out of town.
--- NOTE | 2020-12-01 21:57 | NUR ---
Pt beging to respond to treatment. O2 sat up to 96-97% on AVAPS Tv 600, EPAP 14 with rate 24 and FiO2 100%. Pt still lethargic but has taken bipap mask tubing off x2 and is more easily aroused. Still anuric despite Lasix given at 2130. Levophed at 30 mcg/min and MAP now 61.
[2020-12-01 22:45] LABS: BE(vivo) -9.8 mmol/L (-2 to +3); HCO3 22.4 mmol/L (22.0-26.0); PO2 87.7 mmHg (80.0-100.0); sO2 92.1 % (92.0-98.0)
[2020-12-01 22:47] LABS: pH 7.071 (7.360-7.450)
[2020-12-02] VITALS (96 sets, daily range): BP systolic 53–122; BP diastolic 29–65
[2020-12-02 05:17] LABS: ALBUMIN 2.2 g/dL (3.4-5.0); CALCIUM 7.6 mg/dL (8.5-10.1); PHOSPHORUS 9.9 mg/dL (2.5-4.9); POTASSIUM 5.5 mmol/L (3.5-5.1)
[2020-12-02 05:20] LABS: CREATININE 3.8 mg/dL (0.7-1.3)
[2020-12-02 07:37] LABS: HEMATOCRIT 45.9 % (42.0-52.0)
[2020-12-02 07:39] LABS: HEMOGLOBIN 15.2 gm/dL (14.0-18.0); MCH 31.6 pg (26.0-34.0); MCHC 33.1 g/dL (28.0-37.0); MCV 95.4 fL (80.0-100.0); RBC 4.81 mil/uL (4.50-6.00); RDW 21.3 % (10.5-14.5); WBC 11.2 thou/uL (4.0-11.0)
[2020-12-02 07:42] LABS: BE(vivo) -8.1 mmol/L (-2 to +3); HCO3 20.2 mmol/L (22.0-26.0); PCO2 51.9 mmHg (35.0-45.0); sO2 95.4 % (92.0-98.0)
[2020-12-02 07:43] LABS: pH 7.209 (7.360-7.450)
--- NOTE | 2020-12-02 07:59 | NUR ---
Left message on I.R's phone (no one picking up) re:urgent need for temp dialysis catheter. Dr. Lucia in.--VW
[2020-12-02 17:00] LABS: BE(vivo) -9.6 mmol/L (-2 to +3); HCO3 20.7 mmol/L (22.0-26.0); PCO2 64.8 mmHg (35.0-45.0); PO2 72.3 mmHg (80.0-100.0); sO2 88.6 % (92.0-98.0)
[2020-12-02 17:01] LABS: pH 7.123 (7.360-7.450)
[2020-12-02 19:07] LABS: HEP B SURFACE Ab(ANTI-HBS Non Reactive (()); HEPATITIS B SURFACE AG Negative (Negative)
--- NOTE | 2020-12-02 19:23 | NUR ---
WAS ON THE BIPAP MOST OF THE DAY, DIALYSIS CATHETER PLACED AT THE BEDSIDE BY DR. SCHRADER COMPOSITION TEACHER. PATIENT PLACED ON DIALYSIS SHORTLY AFTER CHEST XRAY WAS COMPLETED. PATIENT HYPOTENSIVE MOST OF THE DAY AND DURING DIALYSIS, DR. BLACKWOOD NOTIFIED AND PATIENT STARTED ON VASO GTT IN ADDITION TO LEVO. AFTER DIALYSIS DR. SCHRADER ROUNDED AND ORDERED AN ABG WHICH WAS RESULTED WITH CRITICAL RESULTS. PATIENT ENDED UP BEING INTUBATED THIS EVENING, CONTIUED TO BE HYPOTENSIVE AND NEOSYNEPHRINE STARTED. CARDIZEM DC'D AND STARTED ON AMIO INSTEAD. PATIENT NOW SEDATED AND ON THE VENT. REPORTED OFF TO LYDIA RUBIN.
[2020-12-03] VITALS (24 sets, daily range): BP systolic 90–141; BP diastolic 43–82
[2020-12-03 05:02] LABS: BE(vivo) -5.1 mmol/L (-2 to +3); HCO3 20.2 mmol/L (22.0-26.0); PCO2 38.6 mmHg (35.0-45.0); PO2 115.4 mmHg (80.0-100.0); pH 7.336 (7.360-7.450)
[2020-12-03 05:21] LABS: ALBUMIN 1.9 g/dL (3.4-5.0); CALCIUM 7.1 mg/dL (8.5-10.1); CREATININE 3.4 mg/dL (0.7-1.3); PHOSPHORUS 7.2 mg/dL (2.5-4.9); POTASSIUM 4.7 mmol/L (3.5-5.1)
--- NOTE | 2020-12-03 09:15 | NUR ---
discussed during am rounds, he had to be intubated yesterday evening around 1730 on 12/02. will cont following as needed for dc needs. possible [facility] today, dialysis ordered possible for . prior to going to icu, [facility] was following and he is from [facility].
--- NOTE | 2020-12-03 10:33 | NUR ---
REC folic acid supplement for deficiency
--- NOTE | 2020-12-03 12:18 | HC ---
[facility] [place] [address] CONSULTATION Name: ALEXEI DUNN Room #: 249-P ADM IN M.R.#: [id number] Admission: 11/24/20 Attend Phys: Favian Sandy MD Discharge: Date of : 52 Report #: [id number] THIS REPORT FOR: cc: Julisa Cordeor Emily S. DO Barry, Joseph W. MD ~ DOC #: [id number] Keith eVnegas MD DATE OF SERVICE: 11/30/2020 INFECTIOUS DISEASE CONSULTATION ATTENDING PHYSICIAN: Dr. Sandy REASON FOR CONSULTATION: Sepsis, gram-positive cocci identified in blood culture. HISTORY OF PRESENT ILLNESS: This is a 70-year-old with extensive medical history. He has known cardiomyopathy with history of congestive heart failure as well as bilateral lower extremity lymphedema, left greater than right, who was admitted through the emergency room with complaints of progressive dyspnea in the days leading up to day of admission. This was associated with some orthopnea. He is also noted to have some lower extremity wounds. He was treated for acute on chronic diastolic heart failure, paroxysmal atrial fibrillation, and acute kidney injury. He was seen by wound care as well, entirely clear. Blood cultures collected on 11/28/2020, now 1/2 growth of gram-positive cocci, awaiting identification. He was initiated on therapy empirically with vancomycin and subsequently added ceftriaxone. He remains quite tenuous at this point. He has continued on high dose supplemental oxygen per nasal cannula at 14 liters per minute as well as pressor support with norepinephrine 18 mcg per minute. He is fairly lucid. He denies significant pain at this point. ALLERGIES: None known. MEDICATIONS: Include furosemide, metoprolol, apixaban, vancomycin, ceftriaxone, norepinephrine, alteplase, levothyroxine, diltiazem as needed, acetaminophen as needed, diuretics. PAST MEDICAL HISTORY: As described above. He has cardiomyopathy with congestive heart failure, hypertension, dyslipidemia, previous acute aortic dissection, Guillain-Harlowton in 1979. PAST SURGICAL HISTORY: Previous cholecystectomy. SOCIAL HISTORY: Former smoker, occasional ethanol. No illicit drug use. [facility] [address] [place] [address] CONSULTATION Name: ALEXEI DUNN Room #: 249-P [facility]#: [id number] Admission: 11/24/20 Attend Phys: Favian Sandy MD Discharge: Date of : 51 Report #: [id number] FAMILY HISTORY: Noncontributory. REVIEW OF SYSTEMS: Otherwise, unremarkable. Ten-point review of systems. PHYSICAL EXAMINATION: GENERAL: He appears chronically ill and undernourished. He is pleasant, cooperative, appears to be oriented, in moderate distress secondary to breathing. VITAL SIGNS: Temperature 97.6, pulse 90, respirations 20, blood pressure 88/55. SKIN: Warm, dry, no rashes. HEENT: Normocephalic. Extraocular muscles intact. Nasal cannula in place. NECK: Supple. LUNGS: Few scattered coarse breath sounds bilaterally. HEART: Tachycardic, irregularly irregular. I do not appreciate a murmur. ABDOMEN: Soft, is distended. No peritoneal signs. EXTREMITIES: Bilateral lower extremity, lymphedema noted in particular on the left, including the dorsum of the foot. In the dorsal aspect of the great toe has chronic dermopathy due to swelling induced stress. RECTAL: Deferred. LABORATORY DATA: As described; blood cultures with growth of gram-positive cocci collected on 11/28/2020. Electrolytes: Sodium 127, potassium 4.0, chloride 92, bicarbonate is 23, anion gap of 12, BUN and creatinine 92 and 2.9, glucose of 249. LFTs unremarkable with the exception of alkaline phosphatase elevated 280. Total protein 52, albumin of 1.7, estimated GFR of 22. CBC: White count of 8.9, H&H 14.7 and 44.5, platelets of 230. Lactic acid of 3.0. Urinalysis; 0-5 white cells, 1-9 bacteria. ABGs from yesterday; pH 7.327, pCO2 of 39.4, pO2 of 83.0 on 14 liters. IMPRESSION: 1. Septic shock with respiratory failure. He is in the setting of a positive blood culture with gram-positive cocci. 2. He has got cardiomyopathy with congestive heart failure, pneumonitis, renal failure, chronic lymphedema of lower extremities with wounds. PLAN: We will continue empiric therapy. It is reasonable to cover with vancomycin with adjust dosing with pharmacy's assist given his renal failure, still unclear to me whether this is a false positive or not. Certainly, he appears to have a shock with sepsis, although it could be cardiogenic in nature. He remains critically ill and at risk for additional complications or deterioration of his clinical status. Did discuss with Dr. Partida. MD JOSE Myrick/RAFAEL/CONOR [facility] [address] [place] [address] CONSULTATION Name: ALEXEI DUNN Room #: 249-P ADM IN M.R.#: [id number] Admission: 11/24/20 Attend Phys: Favian Sandy MD Discharge: Date of : 52 Report #: [id number] <ELECTRONICALLY SIGNED> By: Keith Venegas MD 12/03/20 1218 1251 0044 Keith Venegas MD /nt
--- NOTE | 2020-12-03 14:26 | NUR ---
PT WAS GIVEN ONE DOSE OF ALBUMIN AND STARTED ON NORMAL SALINE IVF AT 150ML/HR. PT MAX ON LEVOPHED AND VASOPRESSIN. PT ON [address] M[address] BLACKWOOD CALLED TO VERIFY IF THE LASIX GTT IS INDICATED PT IS ON THREE PRESORS. PER DR. BLACKWOOD, PT NEEDS TO BE STARTED ON LASIX DRIP.
[2020-12-04] VITALS (25 sets, daily range): BP systolic 82–137; BP diastolic 47–98
--- NOTE | 2020-12-04 06:00 | NUR ---
REMAINS INTUBATED AND SEDATED WITH FENTANYL 75 MCG VERSED 4 MG LEVO 21 MCG VASO GINA GTTS AMIO AT 1 MG. TO KEEP MAP > 60 BATHED. 1300 CC UO THIS SHIFT. BILAT LEGS WRAPPED. PTS FRIEND RICARDO CALLED FROM [place] AND MAY BE UP THIS WEEK. VERY CONCERNED. REMAINS IN A FIB. NOT PROGRESSING TOWARD GOALS. WILL CONT TO MONITOR
[2020-12-04 06:01] LABS: ALBUMIN 2.3 g/dL (3.4-5.0); CALCIUM 6.9 mg/dL (8.5-10.1); CREATININE 3.2 mg/dL (0.7-1.3)
[2020-12-04 07:50] LABS: HEMATOCRIT 40.7 % (42.0-52.0); HEMOGLOBIN 13.6 gm/dL (14.0-18.0); MCH 31.1 pg (26.0-34.0); MCHC 33.4 g/dL (28.0-37.0); MCV 93.1 fL (80.0-100.0); RBC 4.37 mil/uL (4.50-6.00); RDW 20.1 % (10.5-14.5)
[2020-12-05] VITALS (18 sets, daily range): BP systolic 102–123; BP diastolic 54–74
[2020-12-05 05:56] LABS: CALCIUM 6.9 mg/dL (8.5-10.1); PHOSPHORUS 5.5 mg/dL (2.5-4.9)
--- NOTE | 2020-12-05 06:00 | NUR ---
REMAINS INTUBATED AND SEDATED. VASO GINA FENTANYL AND VERSED AND AMIO GTT LEVOPHED TITRATED TO 0.5 MCG. 3000 CC UO THIS SHIFT. REMAINS VERY EDEMATOUS NOT PROGRESSING TOWARD GOALS
[2020-12-05 08:58] LABS: HEMATOCRIT 31.5 % (42.0-52.0); MCH 31.7 pg (26.0-34.0); MCHC 33.8 g/dL (28.0-37.0); MCV 93.7 fL (80.0-100.0)
[2020-12-05 08:59] LABS: RBC 3.36 mil/uL (4.50-6.00); RDW 19.9 % (10.5-14.5); WBC 12.4 thou/uL (4.0-11.0)
[2020-12-05 09:12] LABS: HEMOGLOBIN 10.6 gm/dL (14.0-18.0)
[2020-12-05 09:44] LABS: ABSOLUTE NEUTROPHILS 6.9 thou/uL (1.4-8.2); CORRECTED WBC 9.4 thou/uL (4.0-11.0); NUCLEATED RBCS 32 /100WBC
[2020-12-05 09:45] LABS: ANISOCYTOSIS 1+; PLATELET COUNT 93 thou/uL (150-400); PLATELET ESTIMATE DECREASED; POIKILOCYTOSIS SLIGHT; TOXIC GRANULATION SLIGHT
--- NOTE | 2020-12-05 10:25 | NUR ---
Patient moved from room 249 to room 246. Report given to oncoming RN for continuation of care. Nurse unable to obtain temperature x2, before and after transfer. [place] warmer placed. Gtts titrated per protocol and documented. Per Physician, oral gastric tube placed to low intermittent suction. Peripheral IV was no longer patent. Right arm more edematous than left. A/C IV removed. IV team here now for further evaluation of placement.
--- NOTE | 2020-12-05 10:53 | NUR ---
New skin breakdown on R tibial crest- nursing has been informed and skin breakdown documented. R calf garment is to be donned with minimal tension, extra padding with ABD pads over this bony prominence to reduce risk of further breakdown.
--- NOTE | 2020-12-05 15:59 | NUR ---
chart review. discussed during am rounds. cont to require vent, tf on hold. vijay spoke with friend natacha via phone call [facility] health dir, or dpoa " hope he turns around, only person that might have had it last year, facility might?, has cousin in [place] but do not even know his name?"/natacha. [facility] [phone] ,cm spoke with colin rn of [facility], she going to come and visit him , "he has been with us for 2 years and he is our family, he has cousin and he only talked with friend natacha and cousin on he cell phone. been trying to call him but not answered"/colin. cm provided verbal update on vent.
--- NOTE | 2020-12-05 19:13 | NUR ---
took over cares for patient. patient moved to room 246. patient not progressing towards dismissal goals. patient continues on versed/fentanyl for sedation management. patient continues on levo, norberto and vasopressin. bm today. patient tube feeds continue to be on hold. patient og to lis. replaced 40meq potassium. lasix gtt continues and amiodarone.
[2020-12-06 04:21] LABS: ABSOLUTE NEUTROPHILS 9.5 thou/uL (1.4-8.2); BASOPHILS 0.2 % (0.0-2.0); EOSINOPHILS 0.1 % (0.0-3.0); HEMATOCRIT 31.9 % (42.0-52.0); HEMOGLOBIN 10.7 gm/dL (14.0-18.0); LYMPHOCYTES 6.5 % (24.0-44.0); MCH 31.4 pg (26.0-34.0); MCHC 33.7 g/dL (28.0-37.0); MCV 93.4 fL (80.0-100.0); MONOCYTES 1.9 % (1.0-8.0); PLATELET COUNT 85 thou/uL (150-400); POLYS 91.3 % (36.0-66.0); RBC 3.41 mil/uL (4.50-6.00); RDW 19.5 % (10.5-14.5); WBC 12.4 thou/uL (4.0-11.0)
[2020-12-06 04:30] LABS: ALBUMIN 2.9 g/dL (3.4-5.0); CALCIUM 7.4 mg/dL (8.5-10.1); CREATININE 2.8 mg/dL (0.7-1.3); PHOSPHORUS 5.6 mg/dL (2.6-4.7)
--- NOTE | 2020-12-06 06:36 | NUR ---
Patient stable through the night. Contineus sedation on Fentanyl and Versed while on vent. Able to titrate down Gurpreet to 40 mcg/min from 125 while keeping MAP > 60. HR continues in the 80's afib. Large U/O. Weight down. Loose stool, FMS placed. Replacing potassium per orders. See documentation on interventions for assessment details. Spoke with Patient's friend from [place], gave update on patient condition.
--- NOTE | 2020-12-06 18:36 | NUR ---
TUBE FEEDING BOLUS FEEDINGS RESTARTED AND GIVEN 1 CAN NEPRO AT 1200. RESIDUAL THIS EVENING HIGH 250ML. EVENING TUBE FEEDING HELD.
--- NOTE | 2020-12-06 19:14 | NUR ---
PT REMAINS SEDATED WITH FENT/VERSED. WEANING PRESSORS ABLE TO KEEP MAP >60. GINA WEANED OFF TODAY. REMAINS IN AFIB WITH RATE CONTROLLED. REPORT GIVEN TO FLY SETTER RN.
--- NOTE | 2020-12-06 21:39 | NUR ---
This RN spoke to Neville, patient's friend at 2130. Discussed patient status and plan of care. Fully updated.
[2020-12-07] VITALS (9 sets, daily range): BP systolic 88–114; BP diastolic 45–61
[2020-12-07 03:49] LABS: ALBUMIN 3.1 g/dL (3.4-5.0); CALCIUM 7.7 mg/dL (8.5-10.1); PHOSPHORUS 5.4 mg/dL (2.5-4.9); POTASSIUM 3.6 mmol/L (3.5-5.1)
[2020-12-07 09:56] LABS: HEMATOCRIT 29.9 % (42.0-52.0); MCH 32.1 pg (26.0-34.0); MCHC 33.6 g/dL (28.0-37.0); MCV 95.5 fL (80.0-100.0); PLATELET COUNT 69 thou/uL (150-400); RBC 3.13 mil/uL (4.50-6.00); RDW 20.2 % (10.5-14.5); WBC 12.8 thou/uL (4.0-11.0)
[2020-12-07 10:17] LABS: ABSOLUTE NEUTROPHILS 11.9 thou/uL (1.4-8.2); ANISOCYTOSIS 2+; NUCLEATED RBCS 8 /100WBC; PLATELET ESTIMATE DECREASED
[2020-12-07 10:20] LABS: BE(vivo) -3.6 mmol/L (-2 to +3); HCO3 20.8 mmol/L (22.0-26.0); PCO2 35.2 mmHg (35.0-45.0); PO2 81.6 mmHg (80.0-100.0); pH 7.389 (7.360-7.450)
[2020-12-07 12:06] LABS: D-DIMER 8.17 ug/mLFEU (0.19-0.50); INR 1.14; PROTIME 12.3 Seconds (10.5-12.1)
--- NOTE | 2020-12-07 17:30 | NUR ---
PATIENT REMAINS INTUBATED/SEDATED. NO SEDATION VACATION DUE TO PEEP OF 10. ABG'S DONE THIS MONRING. INCREASED FIO2 TO 45% PER PULMONARY. REMAINS ON VERSED AND FENTANYL GTTS FOR VENT MANAGEMENT. LASIX GTT. AMIODARONE GTT DECREASED TO 0.5 PER PULMONARY. ARGATROBAN GTT STARTED FOR ANTICOAUGLATION. DOSE INITIATED PER PHARMACY CALCULATIONS. FOLLOWING PROTOCOL FOR TITRATING AND LAB DRAWS. CONSULTS FOR HEMATOLOGY DONE.
--- NOTE | 2020-12-07 21:59 | NUR ---
This RN spoke to Neville, friend to patient at 0765. Updated on patient status and care plan.
[2020-12-07 23:06] LABS: HIV ANTIBODY Non Reactive (Non Reactive)
[2020-12-08] VITALS (9 sets, daily range): BP systolic 94–113; BP diastolic 49–66
[2020-12-08 04:01] LABS: ALBUMIN 2.9 g/dL (3.4-5.0); CREATININE 3.1 mg/dL (0.7-1.3); POTASSIUM 3.7 mmol/L (3.5-5.1)
[2020-12-08 04:10] LABS: HEMOGLOBIN 11.1 gm/dL (14.0-18.0); MCH 32.2 pg (26.0-34.0)
[2020-12-08 04:11] LABS: HEMATOCRIT 32.4 % (42.0-52.0); MCHC 34.2 g/dL (28.0-37.0); MCV 94.3 fL (80.0-100.0); RBC 3.43 mil/uL (4.50-6.00); RDW 19.8 % (10.5-14.5)
[2020-12-08 08:51] LABS: DIRECT BILIRUBIN 0.2 mg/dL (<0.1-0.2); TOTAL BILIRUBIN 0.8 mg/dL (0.2-1.0); TOTAL PROTEIN 5.4 g/dL (6.4-8.2)
[2020-12-08 10:06] LABS: HEMATOLOGY COMMENTS Note: (()); HEMOGLOBIN 10.3 g/dL (13.0-17.7)
--- NOTE | 2020-12-08 12:36 | NUR ---
ONGOING ASSESSMENT: PT CONT ON VENT. RECEIVING NUTRITION SUPPORT. AFIB IS CONTROLLED, PRESSORS D/C'D. LASIX AND AMIO GTT. AL STAFFER IS PLANNING TO VISIT THEY CONSIDER PT "FAMILY." CM TO CONT TO FOLLOW.
--- NOTE | 2020-12-08 19:15 | NUR ---
Patient went for cat scan today, tolerated transfer well. Gtt's as documented. He wakes up, slightly opens eyes, and waves right arm with oral care. Patient not progressing towards plan of care as evidenced by continued need for ventilator support. Plan of care is to continue to monitor patient assessments, vital signs, and provide wound care.
[2020-12-09] VITALS (20 sets, daily range): BP systolic 91–117; BP diastolic 48–68
[2020-12-09 06:19] LABS: ALBUMIN 2.6 g/dL (3.4-5.0); CALCIUM 8.4 mg/dL (8.5-10.1); CREATININE 3.1 mg/dL (0.7-1.3); PHOSPHORUS 5.8 mg/dL (2.6-4.7); POTASSIUM 3.3 mmol/L (3.5-5.1)
[2020-12-09 07:37] LABS: ABSOLUTE NEUTROPHILS 11.7 thou/uL (1.4-8.2)
[2020-12-09 07:39] LABS: BASOPHILS 0.2 % (0.0-2.0); HEMATOCRIT 33.7 % (42.0-52.0); HEMOGLOBIN 11.4 gm/dL (14.0-18.0); LYMPHOCYTES 5.1 % (24.0-44.0); MCH 32.4 pg (26.0-34.0); MCHC 33.9 g/dL (28.0-37.0); MCV 95.5 fL (80.0-100.0); MONOCYTES 6.3 % (1.0-8.0); POLYS 88.4 % (36.0-66.0); RBC 3.53 mil/uL (4.50-6.00); RDW 19.8 % (10.5-14.5); WBC 13.9 thou/uL (4.0-11.0)
[2020-12-09 07:40] LABS: PLATELET COUNT 91 thou/uL (150-400)
[2020-12-09 10:26] LABS: ANISOCYTOSIS 1+; POIKILOCYTOSIS SLIGHT; POLYCHROMASIA SLIGHT
--- NOTE | 2020-12-09 18:26 | NUR ---
ASSUMED CARE AT 0700. IV POTASSIUM REPLACEMENT GIVEN, OK PER NEPHROLOGY. ARTERIAL LINE REMOVED, CVP MONITORING DISCONTINUED. PEEP DECREASED TO 7 BY RT. ATTEMPTED 1ST CPAP TRIAL, PATIENT FAILED DUE TO APNEA. INCREASED TUBEFEEDS TOLERATED. AMIO GTT STOPPED PER CARDIOLOGY, PO STARTED. VITAL SIGNS STABLE. PATIENT PROGRESSING TOWARDS GOALS OF CARE.
[2020-12-10] VITALS (24 sets, daily range): BP systolic 92–116; BP diastolic 50–73
--- NOTE | 2020-12-10 02:10 | NUR ---
ASSESSMENT: PT REMAIN ON SEDATION (FENTANYL/VERSED) WHILE STILL INTUBATED. FMS INTACT, MEDIUM AMTS OF DK BROWN, SEMI-LIQUID STOOL. POLYURINATION PER BURTON. PRESSSORS REMAIN OFF, BP 110'S/60 WITH HR80-90'S. AFEBRILE. AFIB PER MONITOR. SPOKE WITH "RICARDO" A FRIEND OF THE PT, GAVE UPDATE. TF INFUSING WITHOUT DIFFICULTY, MAX RESIDUAL WAS 150...REPLACED. GOAL OF 50 NOT ACHIEVED THIS SHIFT., TF CURRENTLY INFUSING AT 40. VENT SETTINGS: PEEP = 7, AC = 24, TV = 550, FIO2 = 45%. SLOW PROGRESS TOWARDS DC GOALS. WILL CONTINUE TO MONTIOR.
[2020-12-10 05:14] LABS: BE(vivo) -0.4 mmol/L (-2 to +3); HCO3 24.4 mmol/L (22.0-26.0); PCO2 40.5 mmHg (35.0-45.0); PO2 78.8 mmHg (80.0-100.0); pH 7.397 (7.360-7.450); sO2 95.6 % (92.0-98.0)
[2020-12-10 05:20] LABS: ABSOLUTE NEUTROPHILS 11.6 thou/uL (1.4-8.2); BASOPHILS 0.1 % (0.0-2.0); HEMATOCRIT 38.1 % (42.0-52.0); HEMOGLOBIN 12.4 gm/dL (14.0-18.0); LYMPHOCYTES 5.5 % (24.0-44.0); MCH 31.8 pg (26.0-34.0); MCHC 32.5 g/dL (28.0-37.0); MCV 97.7 fL (80.0-100.0); MONOCYTES 6.4 % (1.0-8.0); PLATELET COUNT 97 thou/uL (150-400); RDW 19.7 % (10.5-14.5); WBC 13.9 thou/uL (4.0-11.0)
[2020-12-10 06:08] LABS: ALBUMIN 2.5 g/dL (3.4-5.0); CALCIUM 8.5 mg/dL (8.5-10.1); CREATININE 2.8 mg/dL (0.7-1.3); TOTAL BILIRUBIN 0.9 mg/dL (0.2-1.0)
[2020-12-11] VITALS (24 sets, daily range): BP systolic 97–138; BP diastolic 50–82
[2020-12-11 06:23] LABS: ALBUMIN 2.7 g/dL (3.4-5.0); CALCIUM 9.3 mg/dL (8.5-10.1); CREATININE 2.8 mg/dL (0.7-1.3); PHOSPHORUS 5.5 mg/dL (2.6-4.7); POTASSIUM 3.3 mmol/L (3.5-5.1)
--- NOTE | 2020-12-11 07:24 | NUR ---
[facility]ITAL SIG[facility]. CONT PLan of care
[2020-12-11 10:07] LABS: WBC 13.8 thou/uL (4.0-11.0)
[2020-12-11 10:08] LABS: HEMATOCRIT 41.2 % (42.0-52.0); HEMOGLOBIN 13.5 gm/dL (14.0-18.0); MCH 32.1 pg (26.0-34.0); MCHC 32.7 g/dL (28.0-37.0); MCV 98.1 fL (80.0-100.0); RBC 4.2 mil/uL (4.50-6.00); RDW 19.9 % (10.5-14.5)
[2020-12-11 10:32] LABS: BE(vivo) -2.6 mmol/L (-2 to +3); PCO2 54.8 mmHg (35.0-45.0); PO2 71.8 mmHg (80.0-100.0); pH 7.277 (7.360-7.450); sO2 92.2 % (92.0-98.0)
--- NOTE | 2020-12-11 16:59 | NUR ---
PT ON CPAP TRIAL FROM 0830 AM TO 1030 AM. PT STARTED GUPPY BREATHING DURING CPAP TRIAL. STAT ABG WAS DRAWN. CRITICAL pH OF 7.277. RESULT WAS INFORMED TO DR. SCHRADER. PT VOMITTED AROUND THE ET TUBE. PT WAS SUCTIONED. OG TUBE TO SUCTION. WAS INFORMED ABOUT PT VOMITTING AROUND ET TUBE.PT IN AFIB AND RATE IS AROUND UPPER 120. CARDIOLOGY CALLED AND INFORMED ABOUT PT NPO DUE TO VOMITING EPISODE. THE PO DOSE OF CARDIZEM CANNOT BE GIVEN. ORDER FOR BOLUS AND CARDIZEM DRIP RECEIVED. PT STARTED ON 10MG/HR OF CARDIZEM. DR. SCHRADER WAS GIVEN A RUN DOWN ON THE ENTIRE SITUATION. ORDER FOR INCREASING THE PEEP TO 8 WAS RECEIVED. ORDER FOR KUB AND XR CHEST IN THE AM. CONTINUE TO MONITOR.
[2020-12-12] VITALS (20 sets, daily range): BP systolic 87–123; BP diastolic 43–69
--- NOTE | 2020-12-12 04:52 | NUR ---
PT NODS HEAD TO QUESTIONS BUT DOES NOT FOLLOW COMMANDS; OPEN EYES WITH CARES, FREQUENTLY LIFTING HANDS UP, AROUND ETT. DISCUSSION WITH PT REGARDING NOT PULLING AT TUBE, PT NODS HEAD AND THEN LIFTS ARMS AGAIN. RESTRAINTS APPLIED FOR PT SAFETY. CONT TO KEEP OG TO LIS, PT IN SA/AFIB, ON CARDIZEM GTT, BP STABLE, REMAINS ON LIGHT SEDATION.
[2020-12-12 05:00] LABS: ABSOLUTE NEUTROPHILS 9.1 thou/uL (1.4-8.2); BASOPHILS 1.1 % (0.0-2.0); EOSINOPHILS 0.1 % (0.0-3.0); HEMATOCRIT 38.7 % (42.0-52.0); HEMOGLOBIN 12.5 gm/dL (14.0-18.0); LYMPHOCYTES 5.2 % (24.0-44.0); MCH 31.8 pg (26.0-34.0); MCHC 32.4 g/dL (28.0-37.0); MCV 98.2 fL (80.0-100.0); MONOCYTES 5.7 % (1.0-8.0); PLATELET COUNT 102 thou/uL (150-400); POLYS 87.9 % (36.0-66.0); RBC 3.94 mil/uL (4.50-6.00); RDW 19.7 % (10.5-14.5); WBC 11.1 thou/uL (4.0-11.0)
[2020-12-12 05:14] LABS: ALBUMIN 2.4 g/dL (3.4-5.0); CREATININE 2.9 mg/dL (0.7-1.3); PHOSPHORUS 5.7 mg/dL (2.5-4.9); POTASSIUM 3.6 mmol/L (3.5-5.1); TOTAL BILIRUBIN 1.2 mg/dL (0.2-1.0); TOTAL PROTEIN 5.4 g/dL (6.4-8.2)
[2020-12-12 05:30] LABS: BE(vivo) -3.3 mmol/L (-2 to +3); HCO3 21.1 mmol/L (22.0-26.0); PCO2 35.9 mmHg (35.0-45.0); pH 7.387 (7.360-7.450); sO2 96.2 % (92.0-98.0)
--- NOTE | 2020-12-12 08:19 | NUR ---
discussed yesterday in am rounds and los. remains on vent, nutritional support. cpap trial. possible will need 5n acute rehab prior to being able to return to [facility]. will cont following as needed for dc needs.
--- NOTE | 2020-12-12 12:06 | NUR ---
discussed during am rounds and los. cont to require vent, nutritional on hold rt emesis yesterday. cpap trial. IV gtts. cm left message with merrill kaufman, requested call back, he did have [facility] staff visit yesterday per am rounds report. no anticipated dc over the weekend. will cont following as needed for dc needs.
[2020-12-12 16:06] LABS: CORTISOL 30 MIN 80.5 ug/dL (Not Estab.); CORTISOL 60 MIN 81.8 ug/dL (Not Estab.)
--- NOTE | 2020-12-12 17:00 | NUR ---
Pt has been discharged from PT for lymphedema- compression management now addressed by [facility] wound care team to adjust garments and assess skin as indicated daily. Nursing staff educated. Contact director of rehab with any questions regarding plan for compression.
--- NOTE | 2020-12-12 21:21 | NUR ---
CALL TO DR BLACKWOOD FROM DAY SHIFT REGARDING 300CC/SHIFT URINE OUTPUT. JAISON CALLED BACK AT 193, THIS RN RELAYED MESSAGE. ORDERS TO FLUSH BURTON AND IF NO RETURN, TO INCREASE LASIX GTT TO 10MG/HR. FLUSHED BURTON AND REPOSITIONED, 125CC AT 1999, 50CC AT 2099. LASIX GTT REMAINS AT 5MG/HR AND WILL MONITOR I/O CLOSELY
--- NOTE | 2020-12-12 23:02 | NUR ---
GAVE UPDATE TO FRIEND, RICARDO, ANSWERED ALL QUESTIONS WITHIN SCOPE OF PRACTICE
[2020-12-13] VITALS (25 sets, daily range): BP systolic 80–134; BP diastolic 43–74
--- NOTE | 2020-12-13 04:58 | NUR ---
PT NODS/SHAKES HEAD TO QUESTIONS, OCCASIONALLY APPEARS UNCOMFORTABLE IN HIS POSITION, BUT DENIES PAIN. DOES NOT FOLLOW COMMANDS. MINIMAL BROWN/GREEN OUTPUT FROM OG. AFIB, BP STABLE, URINE OUTPUT DECREASING. WEEPING FROM ARMS AND THIGHS. X1 BM, MAROON IN COLOR, SEMI-LIQUID. SATS >97%.
[2020-12-13 05:00] LABS: ALBUMIN 2.3 g/dL (3.4-5.0); CREATININE 3.1 mg/dL (0.7-1.3); POTASSIUM 3.8 mmol/L (3.5-5.1)
[2020-12-13 07:46] LABS: BE(vivo) 1.5 mmol/L (-2 to +3); HCO3 25.6 mmol/L (22.0-26.0); PCO2 38.6 mmHg (35.0-45.0); pH 7.439 (7.360-7.450); sO2 97.7 % (92.0-98.0)
[2020-12-13 12:57] LABS: BE(vivo) -4.6 mmol/L (-2 to +3); HCO3 21.3 mmol/L (22.0-26.0); PCO2 42.2 mmHg (35.0-45.0); PO2 74.4 mmHg (80.0-100.0); sO2 93.9 % (92.0-98.0)
--- NOTE | 2020-12-13 16:38 | NUR ---
ASSUMED CARE AT 0700. PATIENT SLOWLY PROGRESSING TOWARDS THE PLAN OF CARE. CPAP TRIAL FROM [phone]. DR. CHRISTIANSON CONSULTED BY HOSPITALIST.
--- NOTE | 2020-12-13 23:50 | NUR ---
THIS RN SPOKE WITH RICARDO VALENZUELA AND GAVE AN UPDATE.
[2020-12-14] VITALS (31 sets, daily range): BP systolic 92–139; BP diastolic 46–89
[2020-12-14 05:42] LABS: BASOPHILS 0.1 % (0.0-2.0); HEMATOCRIT 34.3 % (42.0-52.0); HEMOGLOBIN 11.5 gm/dL (14.0-18.0); LYMPHOCYTES 4.7 % (24.0-44.0); MCH 32.8 pg (26.0-34.0); MCHC 33.6 g/dL (28.0-37.0); MCV 97.6 fL (80.0-100.0); MONOCYTES 5.5 % (1.0-8.0); PLATELET COUNT 81 thou/uL (150-400); POLYS 89.7 % (36.0-66.0); RBC 3.52 mil/uL (4.50-6.00)
[2020-12-14 06:01] LABS: ALBUMIN 2.4 g/dL (3.4-5.0); CALCIUM 8.7 mg/dL (8.5-10.1); CREATININE 2.8 mg/dL (0.7-1.3); PHOSPHORUS 5.3 mg/dL (2.6-4.7)
[2020-12-14 06:03] LABS: ALBUMIN 2.4 g/dL (3.4-5.0); DIRECT BILIRUBIN 0.4 mg/dL (<0.1-0.2); TOTAL BILIRUBIN 1.6 mg/dL (0.2-1.0); TOTAL PROTEIN 5.3 g/dL (6.4-8.2)
--- NOTE | 2020-12-14 07:01 | NUR ---
PT SLOWLY PROGRESSING TOWARDS GOALS DOWN FROM 60% FIO2 TO 40% OVER THE PAST 24 HRS. REMAINS ON CARDIZEM GTT, LASIX GTT, ARGATROBAN GTT, AND FENTANYL FOR VENT MANAGEMENT. PATIENT WILL NOD HEAD YES AND NO, OPENS EYS. WEAK. 4+ LE BILAT WEEPING EDEMA, BILAT UE 2+ WEEPING EDEMA
[2020-12-14 09:47] LABS: BE(vivo) 0.3 mmol/L (-2 to +3); HCO3 24.8 mmol/L (22.0-26.0); PCO2 39.7 mmHg (35.0-45.0); PO2 86.4 mmHg (80.0-100.0); pH 7.414 (7.360-7.450); sO2 96.7 % (92.0-98.0)
[2020-12-14 12:13] LABS: CORTISOL BASELINE 85.9
--- NOTE | 2020-12-14 16:21 | NUR ---
ASSUMED CARE AT 0700. PATIENT EXTUBATED AT 1145 AND TOLERATED IT WELL. PATIENT PROGRESSING TOWARDS THE PLAN OF CARE EVIDENCED BY DECREASED OXYGEN REQUIREMENTS.
[2020-12-14 20:27] LABS: HCO3 24.2 mmol/L (22.0-26.0); PCO2 46.6 mmHg (35.0-45.0); pH 7.333 (7.360-7.450)
[2020-12-14 20:29] LABS: PO2 48.1 mmHg (80.0-100.0)
--- NOTE | 2020-12-14 23:02 | NUR ---
At [address] Gaviria pt. was wearing out and he ordered to start bipap. Bipap was initiated and pt. continued to decline. At [address] Shivam james notified ED pateint would need to be intubated after bibap failed to improved resp. status. Dr Morataya from ed arrived at bedside to intubate 2024. 2027 20mg Etomidate given, at 2028 100mg Succinylcholine given, intubated with 7.5 ett 22 at the teeth. Propofol 10mcg/kg/min started at 2030. OG tube placed at 60. 2039 ett adjusted to 25 at the teeth. Stat chest xray orered to verify placement.
[2020-12-15] VITALS (25 sets, daily range): BP systolic 96–122; BP diastolic 53–66
--- NOTE | 2020-12-15 02:08 | NUR ---
THIS RN CALLED PT DESIGNATED REP, RICARDO VAUGHN 12/14/20 AT 2030. UPDATE GIVEN ON PT STATUS: PATEINT WAS EXTUBATED 12/14/2020 FROM 1145 UNTIL 2030 HE NEEDE TO BE REINTUBATED. RICARDO VERBALIZED UNDERSTAING OF PT CONDITION.
--- NOTE | 2020-12-15 02:12 | NUR ---
AT 0200 PATIENT WAS MOVED TO A NEW ZEROED BED, NOTED WEIGHT VARIANCE.
--- NOTE | 2020-12-15 05:36 | NUR ---
PATEINT IS NOT PROGRESSING TOWARDS GOALS, EVIDENCED BY REINTUBATION REQUIRED TO RESPITORY DECLINE 12/14/20 AT 2030. REAMINS ON CARDIZEM GTT FOR AFIB, AND SEDATION FOR VENT MANAGEMENT. LASIX DECRESED YESTUDAY, NOTED DECREASE IN URINE OUTPUT.
[2020-12-15 06:05] LABS: ALBUMIN 2.5 g/dL (3.4-5.0); CALCIUM 8.9 mg/dL (8.5-10.1); CREATININE 2.8 mg/dL (0.7-1.3); PHOSPHORUS 6.3 mg/dL (2.5-4.9); POTASSIUM 4.1 mmol/L (3.5-5.1)
--- NOTE | 2020-12-15 10:02 | NUR ---
WOUND CARE F/U; I AM HERE TODAY TO ASSESS THE LE'S BILATERALLLY AND REAPPLY VELCRO COMPRESSION WRAPS. OT HAS SIGNED OFF AN I HAVE ASSUMED THE RESPONSIBILITY TUESDAY-TUESDAY ASSESSMENT OF THE BLE AND REAPPLY THE WRAPS. NO WOUNDS WERE IDENTIFIED. THE WRAPS WERE REAPPLIED. NO SKIN BREAKDOWN WAS IDENTIFIED. DISCUSSED WITH LYDIA
--- NOTE | 2020-12-15 11:07 | NUR ---
chart review, noted extubated over the weekend and had to be reintubated. possible dr martins consult. discussed during los and am rounds on unite. vent for support and nutritional support. unable to visit with daisy. cm passed on to bedside nurse to look for cell phone to see if have any contacts for his brother in [place], if able to do so. will cont following as needed for dc needs.
[2020-12-15 13:00] LABS: BE(vivo) -2.5 mmol/L (-2 to +3); HCO3 21.5 mmol/L (22.0-26.0); PCO2 35.1 mmHg (35.0-45.0); PO2 79.3 mmHg (80.0-100.0); pH 7.406 (7.360-7.450); sO2 95.9 % (92.0-98.0)
--- NOTE | 2020-12-15 18:12 | NUR ---
ASSUMED CARE AT 0700. FIO2 TITRATED DOWN TO 40% BY RT. PATIENT REMAINS IN AFIB RATE 90-110. PATIENT FOLLOWS COMMANDS AND NODS HEAD APPRORIATELY TO QUESTIONS. APPEARS SEVERELY FLUID OVERLOADED, EDEMA IS WEEPING ON ARMS AND LEGS. TUBE FEEDS RESTARTED PER DR. CABALLERO. PATIENT IS NOT PROGRESSING TOWARDS GOALS OF CARE.
[2020-12-16] VITALS (50 sets, daily range): BP systolic 64–136; BP diastolic 30–76
[2020-12-16 04:28] LABS: BE(vivo) -2.9 mmol/L (-2 to +3); PCO2 38.6 mmHg (35.0-45.0); PO2 88.6 mmHg (80.0-100.0); pH 7.373 (7.360-7.450); sO2 96.6 % (92.0-98.0)
--- NOTE | 2020-12-16 06:00 | NUR ---
REMAINS INTUBATED AND SEDATED WITH FENTANYL AND PROPOFOL GTT. CARDIZEM AT 5 MG AND AGROTOBAN GTT PER PROTOCAL. HAd a large maroon liq stool earlier. 350 cc uo this shift. REMAINS IN A FIB NOT PROGRESSING TOWARD GOALS
[2020-12-16 06:01] LABS: HEMATOCRIT 38.2 % (42.0-52.0); HEMOGLOBIN 12.7 gm/dL (14.0-18.0); MCH 32.4 pg (26.0-34.0); MCHC 33.3 g/dL (28.0-37.0); MCV 97.4 fL (80.0-100.0); RBC 3.92 mil/uL (4.50-6.00); RDW 20.3 % (10.5-14.5); WBC 8.1 thou/uL (4.0-11.0)
[2020-12-16 06:17] LABS: CALCIUM 8.7 mg/dL (8.5-10.1); CREATININE 2.9 mg/dL (0.7-1.3); POTASSIUM 4.7 mmol/L (3.5-5.1)
[2020-12-16 09:20] LABS: HEMOGLOBIN 12.5 gm/dL (14.0-18.0)
[2020-12-16 09:21] LABS: HEMATOCRIT 37.7 % (42.0-52.0)
--- NOTE | 2020-12-16 10:13 | NUR ---
AT 0845 PATIENT HAD LARGE MAROON COLORED STOOL. DR. LISA CHEW. ORDERS PLACED. GI CONSULT, GI NURSE PRACTICIONER AT BEDSIDE. PATIENT ALSO HAD LARGE RESIDUAL FROM OG, TUBE FEEDS HELD.
[2020-12-16 15:04] LABS: HEMATOCRIT 37.6 % (42.0-52.0); HEMOGLOBIN 12.2 gm/dL (14.0-18.0)
[2020-12-16 21:23] LABS: HEMATOCRIT 37.8 % (42.0-52.0); HEMOGLOBIN 11.9 gm/dL (14.0-18.0)
--- NOTE | 2020-12-16 23:34 | NUR ---
SPOKE WITH RICARDO, FRIEND GAVE UPDATE, ANSWERED ALL QUESTIONS. PT DOES NOT HAVE A BROTHER, WAS AN ONLY CHILD. THERE IS A COUSIN THAT LIVES IN [place].
[2020-12-17] VITALS (105 sets, daily range): BP systolic 32–198; BP diastolic 11–169
--- NOTE | 2020-12-17 00:44 | NUR ---
CALL TO DR. CABALLERO AT 2353 FOR LOW BP, 60'S SYSTOLIC. GAVE STATUS UPDATE, PT NOT RESPONSIVE, EVEN OFF ALL SEDATION SINCE 1999, CONTINUED RECTAL AND OG BLEEDING. LEVO TURNED TO MAX DOSE AND CARDIZEM OFF. PT STILL IN AFIB RATES UNTIL 100, ON LASIX GTT MADE 10CC SINCE 1999. ORDERS GIVEN FOR 1L NS BOLUS, NEOSYNEPHERINE AND VASOPRESSIN GTTS, ADD EPINEPHERINE IF NEEDED. HGB CURRENTLY 11.9, DROPPING STEADILY BUT NOT QUICKLY. CONTINUE TO DRAW Q6H H&H, MONITOR.
[2020-12-17 03:35] LABS: WBC 9.1 thou/uL (4.0-11.0)
[2020-12-17 03:38] LABS: HEMATOCRIT 35.6 % (42.0-52.0); HEMOGLOBIN 11.1 gm/dL (14.0-18.0); MCH 32.9 pg (26.0-34.0); MCHC 31.2 g/dL (28.0-37.0); RBC 3.37 mil/uL (4.50-6.00); RDW 22.2 % (10.5-14.5)
[2020-12-17 03:48] LABS: ALBUMIN 1.9 g/dL (3.4-5.0); CALCIUM 8.7 mg/dL (8.5-10.1); CREATININE 3.8 mg/dL (0.7-1.3); PHOSPHORUS 11.2 mg/dL (2.6-4.7)
[2020-12-17 04:15] LABS: MCV 105.6 fL (80.0-100.0)
[2020-12-17 04:28] LABS: BE(vivo) -22.4 mmol/L (-2 to +3); HCO3 7.8 mmol/L (22.0-26.0); PCO2 32.3 mmHg (35.0-45.0); PO2 96.8 mmHg (80.0-100.0); pH 6.999 (7.360-7.450); sO2 93.2 % (92.0-98.0)
--- NOTE | 2020-12-17 04:50 | NUR ---
REQUIRING INCREASING VASOPRESSOR SUPPORT, ABG OBTAINED EARLY, CALL TO DR. CABALLERO WITH ABG RESULTS WELL RESULTS FROM METABOLIC PANEL, NOT RESPONSIVE, INCREASING "GUPPY BREATHING" CALL TO DR DEJESUS REGARDING CRITICAL K, AT 0409, AND AGAIN AT 0445, STILL AWAITING CALL BACK. CALL TO DR CABALLERO REGARDING ABG, REQUEST FOR BICARB. RECIEVED ORDERS AND ADDITIONALLY GAVE ORDERS FOR 1L NS BOLUS FOR BP. CURRENTLY AWAITING EPI GTT FROM PHARMACY.
--- NOTE | 2020-12-17 06:36 | NUR ---
BP DROPPING, HR 70'S CARDIZEM STOPPED AT 0400, PHENYEPHERINE TITRATED PER PROTOCOL UP TO MAX, LEVO, AND VASO. EPINEPHERINE STARTED AT 0630 FOR LOW BP. PT NOT RESPONSIVE, BENÍTEZ IN COLOR, BRIGHT RED BLOOD COMING FROM OG. UNABLE TO TURN PT TO CHECK FOR RECTAL BLEEDING FOR SEVERAL HOURS DUE TO HEMODYNAMIC INSTABILITY. ATTEMPTED TO CALL RICARDO TO UPDATE, LEFT MESSAGE.
--- NOTE | 2020-12-17 07:25 | NUR ---
Assummed care of this patient from the night nurse. BP decreasing, Vasoparessin and Epi drips maxed out. Hemodialysis initaiated at 0703. 0725 Unable to palpate pulse. CODE BLUE CALLED. Please refer to Code Blue sheet.
--- NOTE | 2020-12-17 07:29 | NUR ---
titrated epi up by protocol to 15mcg by 07
--- NOTE | 2020-12-17 07:30 | NUR ---
attempted to call natacha at 0630, left message to call hospital
[2020-12-17 08:06] LABS: RBC 2.25 mil/uL (4.50-6.00)
[2020-12-17 08:09] LABS: MCH 32.6 pg (26.0-34.0); MCHC 30.5 g/dL (28.0-37.0); MCV 106.7 fL (80.0-100.0); RDW 22.6 % (10.5-14.5)
[2020-12-17 08:18] LABS: HEMOGLOBIN 7.3 gm/dL (14.0-18.0)
--- NOTE | 2020-12-17 08:20 | NUR ---
Bedside EKG done and CXR of lungs done. Lab drawn. Vasopressin, Levophed, Gurpreet, and Epi at max dosage.
[2020-12-17 08:21] LABS: ALBUMIN 1.1 g/dL (3.4-5.0); CALCIUM 8.6 mg/dL (8.5-10.1); CREATININE 3.3 mg/dL (0.7-1.3); MAGNESIUM 2.5 mg/dL (1.8-2.4); TOTAL BILIRUBIN 1.6 mg/dL (0.2-1.0); TOTAL PROTEIN 2.9 g/dL (6.4-8.2); TROPONIN-I 0.36 ng/mL (<0.06)
[2020-12-17 08:36] LABS: BE(vivo) -24.6 mmol/L (-2 to +3); HCO3 6.1 mmol/L (22.0-26.0); PCO2 27.8 mmHg (35.0-45.0); PO2 103.6 mmHg (80.0-100.0); sO2 93.8 % (92.0-98.0)
[2020-12-17 08:37] LABS: pH 6.961 (7.360-7.450)
[2020-12-17 09:04] LABS: POTASSIUM 6.2 mmol/L (3.5-5.1)
--- NOTE | 2020-12-17 10:12 | NUR ---
ATTEMPTED TO CALL HIS FRIEND RICARDO BERRIOS, MESSAGE LEFT TO CALL BACK
--- NOTE | 2020-12-17 11:00 | NUR ---
PRESSORS OFF. PATIENT REMAINS HYPOTENSIVE WITH HEART RATE DECREASING. NOT ASSISTING THE VENT.
--- NOTE | 2020-12-17 11:10 | NUR ---
discussed during los and am rounds, he made comfort care. MD have all discussed about futile care. cm called Anna Marie COLLADO, left message requesting call back. MD passed on bleeding, multi organ failure during am rounds. dripps been stopped. will cont following as needed for dcp.
--- NOTE | 2020-12-17 11:30 | NUR ---
1115 HEART RATE DECREASING TO AGNOAL RHYTHM. UNABLE TO OBTAIN BP. 1117 MONITOR SHOWING ASYSTOLE, UNABLE TO PALPATE PULSE, 1121 DR CABALLERO INFORMED AND NOW AT BEDSIDE AND PROUNCED PATIENT .
--- NOTE | 2020-12-17 11:36 | EKG ---
[address] [place] [address] ELECTROCARDIOGRAM REPORT Name: ALEXEI DUNN Room #: 246- ADM IN M.R.#: [id number] Admission: 11/24/20 Attend Phys: Favian Sandy MD Discharge: Date of : 52 Report #: [id number] [facility] Test Date: 2020-12-17 Test Time: 07:46:40 Pat Name: ALEXEI DUNN Department: Room: 246 P Gender: M Braid Cutter: SOBIA : 1950 Requested By: Saturnino Harvey Order Number: [id number] MD: Brendan Castro Measurements Intervals [place] Rate: 94 P: 0 CT: QRS: 109 QRSD: 125 T: 5 QT: 411 QTc: 515 Interpretive Statements Low voltage, Suspect AFIB Right bundle branch block Compared to ECG 11/28/2020 16:40:41 Atrial fibrillation still present Electronically Signed On 12-17-2020 11:36:33 CDT by Brendan Castro [email or web address] <ELECTRONICALLY SIGNED> By: Brendan Castro MD, [facility] 12/17/20 1136 5 5 Brendan Castro MD, FACC /EPI
--- NOTE | 2020-12-17 13:17 | NUR ---
-THIS SUPERVISING EDITOR TRAILER WAS PRESENT JUST PRIOR TO THE TIME OF THE PATIENT BEING PRONOUNCED BY . -SUPERVISING EDITOR TRAILER HAD PRAYER FOR THE PATIENT AND ASKED GOD'S BLESSINGS ON THE PATIENT. -THIS SUPERVISING EDITOR TRAILER ATTEMPTED TO CALL RICARDO AT APPROXIMATELY 1315 HOURS TODAY. THERE WAS NO ANSWER SO THIS SUPERVISING EDITOR TRAILER LEFT A HIPAA COMPLIANT MESSAGE REQUESTING A CALL BACK "REGARDING A FRIEND OF HIS".
--- NOTE | 2020-12-17 17:00 | NUR ---
ATTEMPTED TO REACH PATIENT'S FRIEND RICARDO SEVERAL TIMES BUT NO RETURN PHONE CALL OR ANSWER.
--- NOTE | 2020-12-17 17:07 | PATH ---
[facility] [place] [address] PATHOLOGY RPT PROCEDURE Name: ALEXEI DUNN Room #: 246-P ADM IN M.R.#: [id number] Admission: 11/24/20 Date of : 52 Discharge: Report #: [id number] Path Case #: [id number] [facility] Accession Number: [id number] . 01 Material submitted: . body - PERIPHREAL BLOOD FLOW . 02 Diagnosis: Special studies report received from [facility], [address] [place] [address], [address], [place], [address], on case [id number], labeled with their number [id number], dated 12/11/2020. . Flow Cytometry: Hematologic Neoplasia Assessment . Clinical History . . Indication for Study Evaluation for hematolymphoid neoplasia . Specimen Peripheral Blood . Viability 67% (7AAD exclusion) . Interpretation Peripheral Blood: - No diagnostic immunophenotypic abnormalities detected - Mildly left shifted myeloid cells (2.8% circulating myeloid precursors) . Comments The phenotypic profile depicted shows evidence consistent with left-shifted maturation of the myeloid series. This may be seen in a variety of reactive conditions, as well as, myelodysplasia or myeloproliferative neoplasms. Notably, hematologic conditions such as MDS and MPN are difficult to definitively diagnose or exclude solely by flow cytometric analysis. No immunophenotypic evidence of acute leukemia, B-cell non-Hodgkin lymphoma, T-cell lymphoproliferative disorder or plasma cell dyscrasia is detected in this analysis. A thorough clinical and pathologic correlation is recommended prior to the final disposition of this case. . Populations Analyzed Myeloid Blasts: 0.02% No significant blast population detected Lymphocytes: 3% B-cells: 0.4%, polytypic/polyclonal sIg light chain pattern [address] [address] PATHOLOGY RPT PROCEDURE Name: ALEXEI DUNN Tuyet Room #: 246-P ADM IN M.R.#: [id number] Admission: 11/24/20 Date of : 52 Discharge: Report #: [id number] Path Case #: [id number] T-cells: no significant abnormalities of the markers tested CD4+ T-cells: 1.8% (including 0.0% CD57+ cells) CD8+ T-cells: 0.1% (including 0.0% CD57+ cells) CD4:CD8: 30.5 NK cells: 0.9% Neutrophils: 92.8% Mature neutrophilic phenotype with approximately 2.8% circulating myeloid precursors. No other significant abnormalities of the markers tested Monocytes: 4% Monocytes are not increased and have normal expression of monocyte related antigens; partial CD56 (13%). Eosinophils: 0.1% No relative increase Basophils: 0.1% No relative increase CD45 Negative 0.1% No significant reactivity with the markers tested Events/Debris: (may represent unlysed red blood cells, erythroid precursors, platelets, debris, etc.) . . Morphologic Evaluation A slide was reviewed for personnel quality assurance auditor purposes only. . Specimen Description Cell Yield: 12.64 x 10 and 6 . Reagent(s) Used CD2, CD3, CD4, CD5, CD7, CD8, CD10, CD11b, CD11c, CD13, CD14, CD15, CD16, CD19, CD20, CD33, CD34, CD38, CD45, CD56, CD57, CD64, CD103, CD117, HLA-DR, kappa, lambda . at [facility]. Ezekiel Aviles MD Pathologist . Intended Use Flow cytometry is optimally used to immunophenotypically characterize abnormal populations when they are detected. Negative flow cytometry results do not exclude lymphoma or neoplasia. Possible false negative flow cytometry results may occur in, but are not limited to, the following: neoplastic cells in Hodgkin lymphoma are not typically adequately represented by routine clinical flow cytometry; neoplastic cells may be lost or inadequately represented due to degeneration, sample processing, sampling artifact, or patchy involvement; plasma cells are typically underrepresented by flow cytometry; immature cells/blasts may be underrepresented due to hemodilution; myeloproliferative disorders and low grade myelodysplasia may not have immunophenotypic abnormalities or increased blasts. Correlation with all available clinical, laboratory, and [address] [address] PATHOLOGY RPT PROCEDURE Name: ALEXEI DUNN Room #: 246-P ADM IN M.R.#: [id number] Admission: 11/24/20 Date of : 52 Discharge: Report #: [id number] Path Case #: [id number] morphologic data is always necessary to assess for the possibility of false negative flow cytometry results and to establish a diagnosis. Each marker in this analysis was used to assess for potential antigenic abnormalities or to evaluate detected abnormalities. . Any image or images that accompany this report are event marketing representative images only and should not be used to render a diagnosis. . Disclaimer(s) This test was developed and its performance characteristics determined by [id number]. It has not been cleared or approved by the Food and Drug Administration. . [facility] is a business unit of [employer] a wholly-owned subsidiary of [employer]. . This test was performed at [facility]. at [address], [place], [address] - Urban Forester: Alexis Cabrera MD. . For inquiries, the physician may contact Lab: [phone] . A complete copy of the report is on file. . Professional services performed by [employer] [facility]. at [address], [place] [address]. Technical services performed by [facility] at [address], [place] [address]. . (JPM:amwero 12/12/2020) [facility] 12/12/2020 1059 Local . 02 Electronically signed: . David Kelley MD, Pathologist NPI- [id number] . 02 Pathologist provided ICD-10: I50.9, R06.02 . 02 CPT . 559383 Specimen Comment: A courtesy copy of this report has been sent to [phone] Specimen Comment: Report sent to Performed at: 01 [facility] [address] [place] [address] PATHOLOGY RPT PROCEDURE Name: ALEXEI UDNN Room #: 246-P ADM IN M.R.#: [id number] Admission: 11/24/20 Date of : 52 Discharge: Report #: [id number] Path Case #: [id number] [address] [facility] [address], [place], [place] [id number] MD Filippo Mayfield MD Phone: [phone] Performed at: 02 [facility] [address] [facility], [place] [id number] MD David Kelley MD Phone: [phone]
== END 2020-12-17 11:17 | DRG 870 ==
LOC: ER 17:15 → EROBS 20:06 → 3W 20:06 → ICU 11-28 16:57
PROVIDERS: Hospitalist; Internal Medicine; Internal Medicine Hematology & Oncology; Internal Medicine Nephrology; Internal Medicine Pulmonary Disease; Nurse Practitioner; Nurse Practitioner Family; Pediatrics; Specialist; ADMIT Hospitalist; ATTEND Hospitalist
PROC: 5A0945A Assistance with Respiratory Ventilation, 24-96 Consecutive Hours, High Flow/Velocity Cannula (ICD-10-PCS; 2020-11-28)
PROC: 5A09357 Assistance with Respiratory Ventilation, Less than 24 Consecutive Hours, Continuous Positive Airway Pressure (ICD-10-PCS; 2020-12-01)
PROC: 03HY32Z Insertion of Monitoring Device into Upper Artery, Percutaneous Approach (ICD-10-PCS; principal; 2020-12-02)
PROC: 0B9F8ZX Drainage of Right Lower Lung Lobe, Via Natural or Artificial Opening Endoscopic, Diagnostic (ICD-10-PCS; principal; 2020-12-02)
PROC: 02HV33Z Insertion of Infusion Device into Superior Vena Cava, Percutaneous Approach (ICD-10-PCS; principal; 2020-12-02)
PROC: 0BH17EZ Insertion of Endotracheal Airway into Trachea, Via Natural or Artificial Opening (ICD-10-PCS; principal; 2020-12-02)
PROC: 5A1955Z Respiratory Ventilation, Greater than 96 Consecutive Hours (ICD-10-PCS; principal; 2020-12-02)
PROC: B548ZZA Ultrasonography of Superior Vena Cava, Guidance (ICD-10-PCS; principal; 2020-12-02)
PROC: 5A09357 Assistance with Respiratory Ventilation, Less than 24 Consecutive Hours, Continuous Positive Airway Pressure (ICD-10-PCS; 2020-12-11)
PROC: 5A09357 Assistance with Respiratory Ventilation, Less than 24 Consecutive Hours, Continuous Positive Airway Pressure (ICD-10-PCS; 2020-12-14)
PROC: 5A12012 Performance of Cardiac Output, Single, Manual (ICD-10-PCS; 2020-12-17)
DX: A41.02 Sepsis due to Methicillin resistant Staphylococcus aureus (principal); I50.33 Acute on chronic diastolic (congestive) heart failure; R65.21 Severe sepsis with septic shock; J18.9 Pneumonia, unspecified organism; E43 Unspecified severe protein-calorie malnutrition; N17.0 Acute kidney failure with tubular necrosis; J96.01 Acute respiratory failure with hypoxia; I48.21 Permanent atrial fibrillation; E87.1 Hypo-osmolality and hyponatremia; I42.9 Cardiomyopathy, unspecified; D68.59 Other primary thrombophilia; L03.116 Cellulitis of left lower limb; K56.7 Ileus, unspecified; E87.2 Acidosis; K92.2 Gastrointestinal hemorrhage, unspecified; D62 Acute posthemorrhagic anemia; J44.0 Chronic obstructive pulmonary disease with (acute) lower respiratory infection; Z68.41 Body mass index [BMI] 40.0-44.9, adult; I13.0 Hypertensive heart and chronic kidney disease with heart failure and stage 1 through stage 4 chronic kidney disease, or unspecified chronic kidney disease; Z96.642 Presence of left artificial hip joint; E78.5 Hyperlipidemia, unspecified; E87.5 Hyperkalemia; E03.9 Hypothyroidism, unspecified; N18.9 Chronic kidney disease, unspecified; L97.529 Non-pressure chronic ulcer of other part of left foot with unspecified severity; R53.81 Other malaise; I48.0 Paroxysmal atrial fibrillation; I95.9 Hypotension, unspecified; M21.70 Unequal limb length (acquired), unspecified site; M19.90 Unspecified osteoarthritis, unspecified site; E66.01 Morbid (severe) obesity due to excess calories; D69.6 Thrombocytopenia, unspecified; E87.8 Other disorders of electrolyte and fluid balance, not elsewhere classified; L89.899 Pressure ulcer of other site, unspecified stage; S91.109A Unspecified open wound of unspecified toe(s) without damage to nail, initial encounter; Z51.5 Encounter for palliative care; I46.9 Cardiac arrest, cause unspecified; Z66 Do not resuscitate; Z20.822 Contact with and (suspected) exposure to COVID-19; Z90.49 Acquired absence of other specified parts of digestive tract; Z87.891 Personal history of nicotine dependence; X58.XXXA Exposure to other specified factors, initial encounter; Y93.89 Activity, other specified; Y92.89 Other specified places as the place of occurrence of the external cause; Y99.8 Other external cause status
CPT/HCPCS: 10078; 10203; 10879; 32100; 50455; 65040; 85010